=== PATIENT | female | born 1935 | race Caucasian/White ===

== ENCOUNTER 2022-03-07 09:29 | Outpatient (REF) | payer MEDICARE, SELFPAY ==
[2022-03-07 10:33] LABS: MANUAL DIFF FLAG NO
[2022-03-07 10:42] LABS: Basophils Percent Auto 0.3 % (0-2); Eosinophils Percent Auto 0.1 % (0-4); Hematocrit 35.5 % (37.0-47.0); Imm Gran Abs Auto 0.09 X10*3/uL (0.00-0.03); Imm Gran Pct Auto 0.6 % (0.0-0.4); Lymphocytes Absolute Auto 1.1 X10*3/uL (1.2-4.9); Lymphocytes Percent Auto 7.7 % (20-40); Mean Corpuscular Hemoglobin 26.3 pg (27.0-33.0); Mean Corpuscular Volume 84.9 fL (80.0-98.0); Mean Platelet Volume 9.1 fL (9.4-12.3); Monocytes Absolute Auto 0.7 X10*3/uL (0.1-1.2); Monocytes Percent Auto 4.6 % (2-11); Neutrophils Absolute Auto 12.9 x10*3/uL (2.0-8.3); Neutrophils Percent Auto 86.7 % (45-73); Platelet Count 401 X10*3/uL (160-400); Red Blood Count 4.18 X10*6/uL (4.20-5.50); Red Cell Distribution Width 17.5 % (11.0-16.0); White Blood Count 14.8 X10*3/uL (4.8-10.8)
[2022-03-07 10:53] LABS: Alanine Aminotransferase 13 U/L (0-31); Albumin Level 3.6 g/dL (3.5-5.0); Alkaline Phosphatase 72 U/L (39-117); Anion Gap 15 (12-20); Aspartate Amino Transferase 13 U/L (5-31); Bilirubin Total 0.5 mg/dL (0.0-1.0); Blood Urea Nitrogen 19 mg/dL (9-16); C Reactive Protein 2.91 mg/dL (< or = 0.50); Calcium 9.5 mg/dL (8.4-10.2); Carbon Dioxide 27 mmol/L (22-29); Chloride 102 mmol/L (96-108); Estimated Glomerular Filt Rate > 60; Glucose Random 129 mg/dL (60-115); Potassium 4.4 mmol/L (3.3-5.1); Sodium 140 mmol/L (135-145); Total Protein 6.9 g/dL (6.5-8.0)
[2022-03-07 11:11] LABS: HBS Num1 1.35 mIU/mL (0-7.99); HBc Num1 0.09 S/CO (0.00-0.79); HBsAGNum1 0.18 S/CO (0.00-0.99); Hepatitis B Core Antibody Nonreactive (Nonreactive); Hepatitis B Surface Antigen Negative (Negative); ~HepC Num1 0.15 S/CO (0.00-0.79); ~Hepatitis B Surface Antibody NONREACTIVE (Nonreactive); ~Hepatitis C Antibody Nonreactive (Nonreactive)
[2022-03-07 11:26] LABS: Erythrocyte Sedimentation Rate 54 MM/HR (0-20)
[2022-03-08 04:07] LABS: Hepatitis A Antibody IgM 0.36 Index (0-0.79); ~Hepatitis A Antibody IgM Nonreactive (Nonreactive)
[2022-03-10 16:26] LABS: TS Negative Control Passed; TS Panel A 1; TS Panel B 0; TS Positive Control Passed; TSpotTB Negative (Negative)
== END 2022-03-07 09:30 | disposition home or self-care (01) ==
LOC: HO.10HDL 09:29
PROVIDERS: Visit Provider Internal Medicine Rheumatology
DX: M06.9 Rheumatoid arthritis, unspecified (principal); M71.21 Synovial cyst of popliteal space [Baker], right knee; I82.409 Acute embolism and thrombosis of unspecified deep veins of unspecified lower extremity; R79.82 Elevated C-reactive protein (CRP); Z79.899 Other long term (current) drug therapy
CPT/HCPCS: 36415; 80053; 85025; 85652; 86140; 86481; 86704; 86706; 86709; 86803; 87340; 99202

== ENCOUNTER → 2022-04-25 11:04 | Outpatient (BNVA) | payer MEDICARE, SELFPAY | PROVIDERS: PCP Family Medicine; Visit Provider Internal Medicine Rheumatology | DX: M06.9 Rheumatoid arthritis, unspecified (principal); K86.89 Other specified diseases of pancreas; F32.A Depression, unspecified; Z79.52 Long term (current) use of systemic steroids; Z79.899 Other long term (current) drug therapy | CPT/HCPCS: 20610; 99212 ==

== ENCOUNTER 2022-06-12 13:19 | Outpatient (REF) | payer MEDICARE, SELFPAY ==
[2022-06-12 13:35] LABS: MANUAL DIFF FLAG NO
[2022-06-12 14:08] LABS: Basophils Percent Auto 0.2 % (0-2); Hematocrit 40.1 % (37.0-47.0); Hemoglobin 12.5 g/dl (12.0-16.0); Imm Gran Abs Auto 0.05 X10*3/uL (0.00-0.03); Imm Gran Pct Auto 0.5 % (0.0-0.4); Lymphocytes Absolute Auto 1.3 X10*3/uL (1.2-4.9); Lymphocytes Percent Auto 13.4 % (20-40); Mean Corpuscular HGB Conc 31.2 g/dl (31.0-35.0); Mean Corpuscular Hemoglobin 27.3 pg (27.0-33.0); Mean Corpuscular Volume 87.6 fL (80.0-98.0); Monocytes Absolute Auto 0.4 X10*3/uL (0.1-1.2); Monocytes Percent Auto 4.2 % (2-11); Neutrophils Absolute Auto 7.9 x10*3/uL (2.0-8.3); Neutrophils Percent Auto 81.7 % (45-73); Platelet Count 335 X10*3/uL (160-400); Red Blood Count 4.58 X10*6/uL (4.20-5.50); Red Cell Distribution Width 18.1 % (11.0-16.0); White Blood Count 9.7 X10*3/uL (4.8-10.8)
[2022-06-12 14:27] LABS: Alanine Aminotransferase 24 U/L (0-31); Aspartate Amino Transferase 15 U/L (5-31); C Reactive Protein 0.48 mg/dL (< or = 0.50); Estimated Glomerular Filt Rate > 60
[2022-06-12 14:42] LABS: Erythrocyte Sedimentation Rate 16 MM/HR (0-20)
== END 2022-06-12 13:20 | disposition home or self-care (01) ==
LOC: HO.LAB 13:19
PROVIDERS: PCP Family Medicine; Visit Provider Internal Medicine Rheumatology
DX: M06.9 Rheumatoid arthritis, unspecified (principal); Z79.899 Other long term (current) drug therapy
CPT/HCPCS: 36415; 82565; 84450; 84460; 85025; 85652; 86140

== ENCOUNTER 2022-09-16 09:52 | Outpatient (REF) | payer MEDICARE, SELFPAY ==
[2022-09-16 10:09] LABS: MANUAL DIFF FLAG NO
[2022-09-16 11:30] LABS: Basophils Percent Auto 0.3 % (0-2); Eosinophils Percent Auto 0.3 % (0-4); Hematocrit 39.7 % (37.0-47.0); Hemoglobin 12.5 g/dl (12.0-16.0); Imm Gran Abs Auto 0.06 X10*3/uL (0.00-0.03); Imm Gran Pct Auto 0.5 % (0.0-0.4); Lymphocytes Absolute Auto 1.4 X10*3/uL (1.2-4.9); Lymphocytes Percent Auto 11.7 % (20-40); Mean Corpuscular HGB Conc 31.5 g/dl (31.0-35.0); Mean Corpuscular Hemoglobin 29.8 pg (27.0-33.0); Mean Corpuscular Volume 94.5 fL (80.0-98.0); Mean Platelet Volume 9.1 fL (9.4-12.3); Monocytes Absolute Auto 0.7 X10*3/uL (0.1-1.2); Monocytes Percent Auto 5.8 % (2-11); Neutrophils Absolute Auto 9.5 x10*3/uL (2.0-8.3); Neutrophils Percent Auto 81.4 % (45-73); Platelet Count 272 X10*3/uL (160-400); Red Cell Distribution Width 16.4 % (11.0-16.0); White Blood Count 11.7 X10*3/uL (4.8-10.8)
[2022-09-16 11:59] LABS: Alanine Aminotransferase 29 U/L (0-31); Aspartate Amino Transferase 17 U/L (5-31); C Reactive Protein 0.14 mg/dL (< or = 0.50); Estimated Glomerular Filt Rate > 60
[2022-09-16 14:26] LABS: Erythrocyte Sedimentation Rate 10 MM/HR (0-20)
== END 2022-09-16 09:53 | disposition home or self-care (01) ==
LOC: HO.LAB 09:52
PROVIDERS: PCP Family Medicine; Visit Provider Internal Medicine Rheumatology
DX: M06.9 Rheumatoid arthritis, unspecified (principal); Z79.899 Other long term (current) drug therapy
CPT/HCPCS: 36415; 82565; 84450; 84460; 85025; 85652; 86140

== ENCOUNTER → 2022-09-20 09:33 | Outpatient (BNVA) | payer MEDICARE, SELFPAY | PROVIDERS: PCP Family Medicine; Visit Provider Internal Medicine Rheumatology | DX: M06.9 Rheumatoid arthritis, unspecified (principal); M11.80 Other specified crystal arthropathies, unspecified site; M65.9 Synovitis and tenosynovitis, unspecified; S62.102D Fracture of unspecified carpal bone, left wrist, subsequent encounter for fracture with routine healing; Z79.899 Other long term (current) drug therapy; Z79.52 Long term (current) use of systemic steroids | CPT/HCPCS: 99212 ==

== ENCOUNTER 2022-12-28 11:33 | Outpatient (REF) | payer MEDICARE, SELFPAY ==
[2022-12-28 11:58] LABS: MANUAL DIFF FLAG NO
[2022-12-28 12:54] LABS: Basophils Absolute Auto 0.1 X10*3/uL (0.0-0.2); Basophils Percent Auto 0.6 % (0-2); Eosinophils Absolute Auto 0.1 X10*3/uL (0.0-0.4); Eosinophils Percent Auto 0.4 % (0-4); Hematocrit 36.7 % (37.0-47.0); Hemoglobin 11.7 g/dl (12.0-16.0); Imm Gran Abs Auto 0.05 X10*3/uL (0.00-0.03); Imm Gran Pct Auto 0.4 % (0.0-0.4); Lymphocytes Absolute Auto 1.7 X10*3/uL (1.2-4.9); Lymphocytes Percent Auto 13.2 % (20-40); Mean Corpuscular HGB Conc 31.9 g/dl (31.0-35.0); Mean Corpuscular Hemoglobin 29.9 pg (27.0-33.0); Mean Corpuscular Volume 93.9 fL (80.0-98.0); Mean Platelet Volume 9.4 fL (9.4-12.3); Monocytes Absolute Auto 0.9 X10*3/uL (0.1-1.2); Monocytes Percent Auto 7.2 % (2-11); Neutrophils Absolute Auto 9.8 x10*3/uL (2.0-8.3); Neutrophils Percent Auto 78.2 % (45-73); Platelet Count 311 X10*3/uL (160-400); Red Blood Count 3.91 X10*6/uL (4.20-5.50); Red Cell Distribution Width 14.6 % (11.0-16.0); White Blood Count 12.6 X10*3/uL (4.8-10.8)
[2022-12-28 13:26] LABS: Alanine Aminotransferase 16 U/L (0-31); Aspartate Amino Transferase 17 U/L (5-31); C Reactive Protein 0.63 mg/dL (< or = 0.50); Estimated Glomerular Filt Rate > 60
[2022-12-28 13:34] LABS: Erythrocyte Sedimentation Rate 30 MM/HR (0-20)
== END 2022-12-28 11:34 | disposition home or self-care (01) ==
LOC: HO.LAB 11:33
PROVIDERS: PCP Family Medicine; Visit Provider Internal Medicine Rheumatology
DX: M06.9 Rheumatoid arthritis, unspecified (principal); Z79.899 Other long term (current) drug therapy
CPT/HCPCS: 36415; 82565; 84450; 84460; 85025; 85652; 86140

== ENCOUNTER → 2023-01-03 09:31 | Outpatient (BNVA) | payer MEDICARE, SELFPAY | PROVIDERS: PCP Family Medicine; Visit Provider Internal Medicine Rheumatology | DX: M18.0 Bilateral primary osteoarthritis of first carpometacarpal joints (principal); M06.9 Rheumatoid arthritis, unspecified; Z79.52 Long term (current) use of systemic steroids; Z79.899 Other long term (current) drug therapy; Z90.410 Acquired total absence of pancreas; Z90.49 Acquired absence of other specified parts of digestive tract | CPT/HCPCS: 99212 ==

== ENCOUNTER 2023-03-01 11:28 | Outpatient (REF) | payer MEDICARE, SELFPAY ==
[2023-03-01 11:42] LABS: MANUAL DIFF FLAG NO
[2023-03-01 13:02] LABS: Basophils Percent Auto 0.3 % (0-2); Eosinophils Percent Auto 0.3 % (0-4); Hematocrit 37.4 % (37.0-47.0); Imm Gran Abs Auto 0.07 X10*3/uL (0.00-0.03); Imm Gran Pct Auto 0.6 % (0.0-0.4); Lymphocytes Absolute Auto 1.3 X10*3/uL (1.2-4.9); Lymphocytes Percent Auto 10.8 % (20-40); Mean Corpuscular HGB Conc 32.1 g/dl (31.0-35.0); Mean Corpuscular Hemoglobin 30.1 pg (27.0-33.0); Mean Corpuscular Volume 93.7 fL (80.0-98.0); Mean Platelet Volume 9.7 fL (9.4-12.3); Monocytes Absolute Auto 0.8 X10*3/uL (0.1-1.2); Monocytes Percent Auto 6.8 % (2-11); Neutrophils Absolute Auto 9.5 x10*3/uL (2.0-8.3); Neutrophils Percent Auto 81.2 % (45-73); Platelet Count 311 X10*3/uL (160-400); Red Blood Count 3.99 X10*6/uL (4.20-5.50); Red Cell Distribution Width 15.7 % (11.0-16.0); White Blood Count 11.7 X10*3/uL (4.8-10.8)
[2023-03-01 13:31] LABS: Alanine Aminotransferase 43 U/L (0-31); Aspartate Amino Transferase 23 U/L (5-31); C Reactive Protein < 0.10 mg/dL (< or = 0.50); Estimated Glomerular Filt Rate > 60
[2023-03-01 13:43] LABS: Erythrocyte Sedimentation Rate 17 MM/HR (0-20)
== END 2023-03-01 11:29 | disposition home or self-care (01) ==
LOC: HO.LAB 11:28
PROVIDERS: Visit Provider Internal Medicine Rheumatology
DX: M06.9 Rheumatoid arthritis, unspecified (principal); Z79.899 Other long term (current) drug therapy
CPT/HCPCS: 36415; 82565; 84450; 84460; 85025; 85652; 86140

== ENCOUNTER 2023-03-05 14:24 | Outpatient (AMB) | payer MEDICARE, SELFPAY ==
--- NOTE | 2023-03-05 14:35 | A.OFFVIS_ITS ---
Intake Vital Signs 03/05/23 14:36 Height 5 ft 3 in Weight 115 lb 4.828 oz BMI 20.4 BP 130/78 Blood Pressure Location Rt brachial Position Sitting Pulse 57 Pulse Source Pulse Oximeter Temp 97.3 F Temp Source Skin Pulse Oximetry (%) 98 Oxygen Delivery Method Room Air Intake Visit Reasons: RA Intake Note: Here for RA follow up. Requesting MTX be resent to [facility]. Marker Delivery Required: No Accompanied by: Son Allergies amoxicillin Allergy (Intermediate, Verified 03/05/23 14:35) Nausea and Vomiting Medication List - Last Reconciled 03/05/23 by Pablo Matias MD acetaminophen (Tylenol) 650 mg PO BID alendronate 70 mg PO QWEEK amlodipine 5 mg PO DAILY cholecalciferol (vitamin D3) 25 mcg PO DAILY cyanocobalamin (vitamin B-12) (Vitamin B-12) 1,000 mcg PO DAILY folic acid 1 mg PO DAILY [id number] 6,000-19,000 -30,000 unit (Creon) 0 caps PO loteprednol etabonate 0.5% 1 drp ophthalmic (eye) TID methotrexate sodium 20 mg (8 x 2.5 mg) PO QWEEK metoprolol succinate ER 50 mg PO DAILY prednisone 5 mg PO BID valsartan 80 mg PO DAILY HPI HPI Comments History of Present Illness Details The patient presents today with her son for evaluation of her rheumatoid arthritis. At her last visit a couple of months ago I had injected the right wrist. She thinks that has done quite well. We also increased her methotrexate up to 20 mg weekly with 1 mg daily folic acid and the prednisone remains at 5 mg b.i.d.. She was also having some more pain in the left knee and saw Orthopedics. They again injected the left knee. She has plans to talk to a surgeon in a few months about a knee replacement. She remains on alendronate 70 mg weekly for osteoporosis. She feels like she wants to do more walking but feels like she needs someone to accompany her. The son wants me to send her for some physical therapy again in [place] where she had a good experience earlier. She does not seem to have much in the way of trouble eating but has not gained weight. She does have some fatigue after moving her bowels. The left shoulder remains painful. [facility] Medical History (Updated 03/05/23 @ 16:04 by Pablo Matias MD) Left wrist fracture Surgical History H/O Whipple procedure Social History Household Members: Spouse Housing: Apartment Alcohol intake: never Patient Tobacco Use Status: Never used Tobacco e-Cigarette/Vaping Use: Never Used service: No Current occupational status: retired Hearing needs: Yes Vision needs: No Review of Systems Const Details: Some fatigue after a bowel movement. Negative for appetite change, weight change, fever, chills, malaise and fatigue Eyes Details: Negative for vision change, dry eyes,headaches and dizziness ENT Details: Hearing loss is severe. I think this tends to minimize her social interaction. Negative for hearing change, tinnitus, oral ulcer, nose bleeds and oral dryness. Card Details: Negative chest pain, edema and syncope Resp Details: Negative for SOB, cough and wheezing GI Details: Negative indigestion/heartburn, nausea, abdominal pain, bowel changes, diarrhea, constipation and bloody stool. Psych Details: Negative for anxiety, depression and stress Endo Details: Negative for polyuria and polydypsia David/Lymph Details: Negative for excessive bruising or bleeding. Physical Exam Vital Signs: Last Vital Signs Temp 97.3 F 03/05/23 14:36 Pulse 57 03/05/23 14:36 BP 130/78 03/05/23 14:36 Pulse Ox 98 03/05/23 14:36 Oxygen Delivery Method Room Air 03/05/23 14:36 BMI result Body Mass Index 20.4 APPEARANCE: Patient in no acute distress EYES no redness, pupils equal and reactive to light, eyelids normal JOINT EXAM: ? Cervical Spine:.? lateral flexion limited at 10 degrees and rotation at 45 degrees but without pain; no tenderness. Thoracic Spine:.? No scoliosis.? No tenderness on palpation. Lumbar Spine:.? Alignment normal.? Full range of motion without pain, no tenderness. Chest Wall:.? No tenderness, swelling, increased warmth or erythema. Hands:? Right:? Soft tissue swelling and without tenderness at the 1st 3 MCP joints.? The swelling is most prominent at the 3rd MCP.? There is also some slight nontender thickening of the 2nd and 3rd PIP joints.? There is some questionable thenar atrophy.? There is mild bony enlargement with slight tendern ess at the base of the thumb.? No sensory loss.? Left:? Mild swelling with no tenderness at the 1st 2 MCP joints and the 2nd 3rd PIP joints.? The 2nd has a healing laceration, which is slightly tender. She says she cut this preparing some food. Other PIP's are not tender.? There is no sensory loss but she has mild thenar atrophy. Wrists:? Right:? No pain with flexion or extension to 75 degrees. There is no swelling or tenderness, no redness or warmth.? Left:? Mild discomfort with flexion or extension 75 degrees, slight tenderness with no redness or warmth. Elbows:. Normal pain-free range of motion without tenderness, swelling, increased warmth or erythema. Shoulders:,? Right:? Mild pain with abduction 150 degrees or with more than 20 degrees of internal or external rotation. There is mild anterior tenderness and some questionable weakness but no adenopathy.? Left:? Mild pain with the extremes of normal range of motion. Mild anterior tenderness without swelling or adenopathy. Hips:.? Full range of motion without pain. Hip bursa:.? No tenderness. Knees: ? Right:? No pain with extremes of flexion extension.? She has moderate patellofemoral crepitus with slight medial tenderness but no effusion, redness or warmth..? Left: Mild patellofemoral crepitus and mild pain with the extremes of normal flexion or extension.? There is mild medial tenderness but no effusion, redness or warmth. ? Ankles:.? Left:? Mild pain with extremes of motion with some mild medial and lateral tenderness.? Slight medial swelling.? Right:? Normal pain-free range of motion without tenderness, swelling, increased warmth or erythema. Feet:? right: Mild 1st MTP bony enlargement without tenderness.? Left:? There is some mild tenderness in the instep and 1st MTP.? Mild bony enlargement at the 1st MTP. 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 2019 - treated with prednisone 04/2022: methotrexate started Code(s): M06.9 - Rheumatoid arthritis, unspecified Plan Rheumatoid arthritis with what seems to be less symptomatic synovitis present at this visit. This could be because of the recent corticosteroid injection in the left knee but we have also increased her methotrexate. We will see if we can reduce her prednisone slightly to 5 mg in the morning and 2.5 mg in the evening. The methotrexate may be causing some mild LFT elevations so we will make sure we watch that with another test before next visit in 2 months. If we cannot control the synovitis with just the methotrexate we will have to think of other alternative such as adding a TNF inhibitor. She should stay on the alendronate for her osteoporosis, certainly with a continued need for prednisone the alendronate would be helpful to try to prevent fractures. We will send her to physical therapy and she will work on getting protein in her diet to make her a good candidate for surgery. We will see her back in 2 months with lab before that visit. Orders: Orders PT Evaluation and Treatment Today M06.9 - Rheumatoid arthritis, unspecified, M17.0 - Bilateral primary osteoarthritis of knee Alanine Aminotransferase Today M06.9 - Rheumatoid arthritis, unspecified, Z79.899 - Other correction (current) drug therapy Aspartate Amino Transferase Today M06.9 - Rheumatoid arthritis, unspecified, Z79.899 - Other correction (current) drug therapy Creatinine Today M06.9 - Rheumatoid arthritis, unspecified, Z79.899 - Other correction (current) drug therapy C Reactive Protein Today M06.9 - Rheumatoid arthritis, unspecified Complete Blood Count Auto Diff Today M06.9 - Rheumatoid arthritis, unspecified, Z79.899 - Other correction (current) drug therapy Erythrocyte Sedimentation Rate Today M06.9 - Rheumatoid arthritis, unspecified Medications: Changed From methotrexate sodium 4 tab in the AM and 4 tab in the PM on the day she takes the methotrexate (note dose increase) 20 mg (8 x 2.5 mg) PO QWEEK 32 tabs 1RF M06.9 - Rheumatoid arthritis, unspecified To methotrexate sodium 4 tab in the AM and 4 tab in the PM on the day she takes the methotrexate (note dose now 20 mg once a week) 20 mg (8 x 2.5 mg) PO QWEEK 32 tabs 1RF M06.9 - Rheumatoid arthritis, unspecified Coding Level of Care Code Est Pt Level 4 (96214) Diagnoses [facility] use of drug Z79.899 History of Whipple procedure Z90.410; Z90.49 Osteoarthritis of thumbs, bilateral M18.0 Osteoarthritis of knees, bilateral M17.0 Rheumatoid arthritis M06.9
[2023-03-05 14:36] VITALS: BP 130/78; PULSE 57; TEMP 36.3; O2SAT 98; BMI 20.4
== END 2023-03-05 15:22 | disposition home or self-care (01) ==
PROVIDERS: PCP Family Medicine; Visit Provider Internal Medicine Rheumatology
DX: Z79.899 Other long term (current) drug therapy (principal); Z90.410 Acquired total absence of pancreas; Z90.49 Acquired absence of other specified parts of digestive tract; M18.0 Bilateral primary osteoarthritis of first carpometacarpal joints; M17.0 Bilateral primary osteoarthritis of knee; M06.9 Rheumatoid arthritis, unspecified
CPT/HCPCS: 99214

== ENCOUNTER → 2023-03-05 14:24 | Outpatient (BNVA) | payer MEDICARE, SELFPAY | PROVIDERS: PCP Family Medicine; Visit Provider Internal Medicine Rheumatology | DX: M18.0 Bilateral primary osteoarthritis of first carpometacarpal joints (principal); M17.0 Bilateral primary osteoarthritis of knee; M06.9 Rheumatoid arthritis, unspecified; Z79.631 Long term (current) use of antimetabolite agent; Z90.410 Acquired total absence of pancreas | CPT/HCPCS: 99212 ==

== ENCOUNTER 2023-05-03 12:29 | Outpatient (REF) | payer MEDICARE, SELFPAY ==
[2023-05-03 12:44] LABS: MANUAL DIFF FLAG NO
[2023-05-03 14:16] LABS: Basophils Percent Auto 0.3 % (0-2); Eosinophils Percent Auto 0.2 % (0-4); Hematocrit 37.2 % (37.0-47.0); Hemoglobin 12.1 g/dl (12.0-16.0); Imm Gran Abs Auto 0.04 X10*3/uL (0.00-0.03); Imm Gran Pct Auto 0.4 % (0.0-0.4); Lymphocytes Absolute Auto 1.3 X10*3/uL (1.2-4.9); Lymphocytes Percent Auto 13.7 % (20-40); Mean Corpuscular HGB Conc 32.5 g/dl (31.0-35.0); Mean Corpuscular Hemoglobin 30.4 pg (27.0-33.0); Mean Corpuscular Volume 93.5 fL (80.0-98.0); Mean Platelet Volume 9.7 fL (9.4-12.3); Monocytes Absolute Auto 0.7 X10*3/uL (0.1-1.2); Monocytes Percent Auto 7.7 % (2-11); Neutrophils Absolute Auto 7.3 x10*3/uL (2.0-8.3); Neutrophils Percent Auto 77.7 % (45-73); Platelet Count 287 X10*3/uL (160-400); Red Blood Count 3.98 X10*6/uL (4.20-5.50); White Blood Count 9.5 X10*3/uL (4.8-10.8)
[2023-05-03 14:53] LABS: Erythrocyte Sedimentation Rate 16 MM/HR (0-20)
[2023-05-03 15:11] LABS: Alanine Aminotransferase 24 U/L (0-31); Aspartate Amino Transferase 18 U/L (5-31); C Reactive Protein 0.23 mg/dL (< or = 0.50); Estimated Glomerular Filt Rate > 60
== END 2023-05-03 12:30 | disposition home or self-care (01) ==
LOC: HO.LAB 12:29
PROVIDERS: PCP Family Medicine; Visit Provider Internal Medicine Rheumatology
DX: M06.9 Rheumatoid arthritis, unspecified (principal); Z79.899 Other long term (current) drug therapy
CPT/HCPCS: 36415; 82565; 84450; 84460; 85025; 85652; 86140

== ENCOUNTER 2023-05-07 14:18 | Outpatient (AMB) | payer MEDICARE, SELFPAY ==
--- NOTE | 2023-05-07 14:20 | MHC.OFFVIS ---
Intake Vital Signs 05/07/23 14:21 Height 5 ft 3 in Weight 121 lb 0.54 oz BMI 21.4 BP 102/58 L Blood Pressure Location Rt brachial Position Sitting Pulse 64 Pulse Source Pulse Oximeter Temp 97.1 F Temp Source Skin Pulse Oximetry (%) 98 Oxygen Delivery Method Room Air Intake Visit Reasons: RA Intake Note: Patient presents today to follow up on RA. 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 Her son accompanies her. The patient is now on 20 mg weekly methotrexate(she takes 4 tablets of the 2.5 mg methotrexate twice on the day that she takes the methotrexate), prednisone 5 mg in the morning and 2.5 mg in the afternoon, alendronate 70 mg once a week, folic acid 1 mg daily, and 2 or 3 tablets of acetaminophen spread through the day. In general the joints are doing fairly well. She notes the right wrist did much better after the corticosteroid injection a few months ago. She has not required any more injections in the knees from the orthopedist. She recently has moved from [place] to [place] so is closer to her son. She wants to again get starting to do some walking but feels unsteady on her feet. She tried to start physical therapy but apparently that was when she was moving and she lost the prescription. [facility] Medical History (Updated 03/05/23 @ 16:04 by Pablo Matias MD) Left wrist fracture Surgical History H/O Whipple procedure Social History Household Members: Spouse Housing: Apartment Alcohol intake: never Patient Tobacco Use Status: Never used Tobacco e-Cigarette/Vaping Use: Never Used service: No Current occupational status: retired Hearing needs: Yes Vision needs: No Review of Systems Const Details: Negative for appetite change, weight change, fever, chills, malaise and fatigue Eyes Details: Negative for vision change, dry eyes,headaches and dizziness ENT Details: Negative for hearing change, tinnitus, oral ulcer, nose bleeds and oral dryness. Card Details: Negative chest pain, edema and syncope Resp Details: Negative for SOB, cough and wheezing GI Details: Occasional loose stool attributed to her previous pancreatic surgery. Negative indigestion/heartburn, nausea, abdominal pain, bowel changes, constipation and bloody stool. Endo Details: Negative for polyuria and polydypsia David/Lymph Details: Negative for excessive bruising or bleeding. Physical Exam Vital Signs: Last Vital Signs Temp 97.1 F 05/07/23 14:21 Pulse 64 05/07/23 14:21 BP 102/58 L 05/07/23 14:21 Pulse Ox 98 05/07/23 14:21 Oxygen Delivery Method Room Air 05/07/23 14:21 BMI result Body Mass Index 21.4 APPEARANCE: Patient in no acute distress EYES no redness, pupils equal and reactive to light, eyelids normal JOINT EXAM: ? Cervical Spine:.? lateral flexion limited at 10 degrees and rotation at 45 degrees but without pain; no tenderness. Thoracic Spine:.? No scoliosis.? No tenderness on palpation. Lumbar Spine:.? Alignment normal.? Full range of motion without pain, no tenderness. Chest Wall:.? No tenderness, swelling, increased warmth or erythema. Hands:? Right:? Soft tissue swelling and without tenderness at the 1st 3 MCP joints.? The swelling is most prominent at the 3rd MCP.? There is also some slight nontender thickening of the 2nd and 3rd PIP joints.? There is some questionable thenar atrophy.? There is mild bony enlargement with mild tenderness at the base of the thumb.? No sensory loss.? Left:? Mild swelling with no tenderness at the 1st 2 MCP joints and the 2nd 3rd PIP joints.? Other PIP's are not tender.? There is no sensory loss but she has mild thenar atrophy. Wrists:? Right:? No pain with flexion or extension to 75 degrees. There is no swelling or tenderness, no redness or warmth.? Left:? Mild discomfort with flexion or extension 75 degrees, slight tenderness with no redness or warmth. Elbows:. Normal pain-free range of motion without tenderness, swelling, increased warmth or erythema. Shoulders:,? Right:? Mild pain with abduction 150 degrees or with more than 20 degrees of internal or external rotation. There is mild anterior tenderness and some questionable weakness but no adenopathy.? Left:? Mild pain abduction at 120 degrees. Active motion and passive motion limited at about 150 degrees of abduction. Mild anterior tenderness without swelling or adenopathy. Hips:.? Full range of motion without pain. Hip bursa:.? No tenderness. Knees: ? Right:? No pain with extremes of flexion extension.? She has moderate patellofemoral crepitus with slight medial tenderness but no effusion, redness or warmth..? Left: Mild patellofemoral crepitus and mild pain with the extremes of normal flexion or extension.? There is mild medial tenderness but no effusion, redness or warmth. ? Ankles:.? Left:? Mild pain with extremes of motion with some mild medial and lateral tenderness.? Slight medial swelling.? Right:? Normal pain-free range of motion without tenderness, swelling, increased warmth or erythema. Feet:? right: Mild 1st MTP bony enlargement without tenderness.? Left:? There is some mild tenderness in the instep and 1st MTP.? Mild bony enlargement at the 1st MTP. 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 2019 - treated with prednisone 04/2022: methotrexate started Code(s): M06.9 - Rheumatoid arthritis, unspecified Plan Rheumatoid arthritis with improvement in the synovitis now that she has been on the methotrexate for a number of months. She does not seem to have any side effects with that as the blood work looked good so we will continue with the 20 mg weekly. We will cautiously try a further reduction in the prednisone to 2.5 mg twice a day. She will get lab work before the next visit in about 3 months. She should continue with the acetaminophen and alendronate as before. I gave her a new printed prescription for physical therapy with the aim of improving her gait, lower extremity strength, and shoulder range of motion. Orders: Orders PT Evaluation and Treatment Today M06.9 - Rheumatoid arthritis, unspecified, M17.0 - Bilateral primary osteoarthritis of knee Erythrocyte Sedimentation Rate Today M06.9 - Rheumatoid arthritis, unspecified C Reactive Protein Today M06.9 - Rheumatoid arthritis, unspecified Complete Blood Count Auto Diff Today M06.9 - Rheumatoid arthritis, unspecified, Z79.899 - Other logistic manager (current) drug therapy Comprehensive Met. Panel Today Z79.899 - Other [place] (current[facility] drug therapy Medications: Changed From prednisone one tab in AM and 1/2 tab in PM 45 tabs 2RF M06.9 - Rheumatoid arthritis, unspecified To prednisone 2.5 mg (1/2 x 5 mg) PO BID 30 tabs 2RF M06.9 - Rheumatoid arthritis, unspecified Coding Level of Care Code Est Pt Level 3 (39255) Diagnoses Osteoarthritis of knees, bilateral M17.0 bridge inspector use of drug Z79.899 Rheumatoid arthritis M06.9
[2023-05-07 14:21] VITALS: BP 102/58; PULSE 64; TEMP 36.2; O2SAT 98; BMI 21.4
== END 2023-05-07 15:15 | disposition home or self-care (01) ==
PROVIDERS: PCP Family Medicine; Visit Provider Internal Medicine Rheumatology
DX: M17.0 Bilateral primary osteoarthritis of knee (principal); Z79.899 Other long term (current) drug therapy; M06.9 Rheumatoid arthritis, unspecified
CPT/HCPCS: 99213

== ENCOUNTER → 2023-05-07 14:18 | Outpatient (BNVA) | payer MEDICARE, SELFPAY | PROVIDERS: PCP Family Medicine; Visit Provider Internal Medicine Rheumatology | DX: M17.0 Bilateral primary osteoarthritis of knee (principal); M06.9 Rheumatoid arthritis, unspecified; Z79.899 Other long term (current) drug therapy | CPT/HCPCS: 99212 ==

== ENCOUNTER 2023-07-30 09:30 | Outpatient (REF) | payer MEDICARE, SELFPAY ==
[2023-07-30 09:53] LABS: MANUAL DIFF FLAG NO
[2023-07-30 10:28] LABS: Basophils Absolute Auto 0.1 X10*3/uL (0.0-0.2); Eosinophils Absolute Auto 0.2 X10*3/uL (0.0-0.4); Eosinophils Percent Auto 2.3 % (0-4); Hemoglobin 12.2 g/dl (12.0-16.0); Imm Gran Abs Auto 0.03 X10*3/uL (0.00-0.03); Imm Gran Pct Auto 0.3 % (0.0-0.4); Lymphocytes Absolute Auto 3.5 X10*3/uL (1.2-4.9); Lymphocytes Percent Auto 37.7 % (20-40); Mean Corpuscular HGB Conc 31.3 g/dl (31.0-35.0); Mean Corpuscular Hemoglobin 30.7 pg (27.0-33.0); Mean Platelet Volume 9.2 fL (9.4-12.3); Monocytes Percent Auto 10.8 % (2-11); Neutrophils Absolute Auto 4.4 x10*3/uL (2.0-8.3); Neutrophils Percent Auto 47.9 % (45-73); Platelet Count 389 X10*3/uL (160-400); Red Blood Count 3.98 X10*6/uL (4.20-5.50); Red Cell Distribution Width 15.4 % (11.0-16.0); White Blood Count 9.2 X10*3/uL (4.8-10.8)
[2023-07-30 11:08] LABS: Erythrocyte Sedimentation Rate 23 MM/HR (0-20)
[2023-07-30 11:25] LABS: Alanine Aminotransferase 23 U/L (0-31); Albumin Level 3.8 g/dL (3.5-5.0); Alkaline Phosphatase 58 U/L (39-117); Anion Gap 12 (12-20); Aspartate Amino Transferase 19 U/L (5-31); Bilirubin Total 0.5 mg/dL (0.0-1.0); Blood Urea Nitrogen 14 mg/dL (9-16); C Reactive Protein < 0.10 mg/dL (< or = 0.50); Calcium 9.2 mg/dL (8.4-10.2); Carbon Dioxide 28 mmol/L (22-29); Chloride 105 mmol/L (96-108); Estimated Glomerular Filt Rate > 60; Glucose Random 93 mg/dL (60-115); Potassium 3.5 mmol/L (3.3-5.1); Sodium 141 mmol/L (135-145); Total Protein 7.3 g/dL (6.5-8.0)
== END 2023-07-30 09:31 | disposition home or self-care (01) ==
LOC: HO.LAB 09:30
PROVIDERS: PCP Family Medicine; Visit Provider Internal Medicine Rheumatology
DX: M06.9 Rheumatoid arthritis, unspecified (principal); Z79.899 Other long term (current) drug therapy
CPT/HCPCS: 36415; 80053; 85025; 85652; 86140

== ENCOUNTER 2023-08-02 13:54 | Outpatient (AMB) | payer MEDICARE, SELFPAY ==
--- NOTE | 2023-08-02 14:13 | MHC.OFFVIS ---
Intake Vital Signs 08/02/23 14:15 Height 5 ft 3 in Weight 116 lb 6.465 oz BMI 20.6 BP 136/60 Blood Pressure Location Rt brachial Position Sitting Pulse 58 Pulse Source Pulse Oximeter Temp 96.8 F Temp Source Skin Pulse Oximetry (%) 97 Oxygen Delivery Method Room Air Intake Visit Reasons: RA Intake Note: Pt last seen by Dr Matias on 05/07/23 presents today for follow up and test results. Research Study Assistant Required: No Accompanied by: Son Allergies amoxicillin Allergy (Intermediate, Verified 08/02/23 14:18) Nausea and Vomiting Medication List - Last Reconciled 08/02/23 by Nisha Pitts MD acetaminophen (Tylenol) 650 mg PO BID alendronate 70 mg PO QWEEK amlodipine 5 mg PO DAILY cholecalciferol (vitamin D3) 25 mcg PO DAILY cyanocobalamin (vitamin B-12) (Vitamin B-12) 1,000 mcg PO DAILY folic acid 1 mg PO DAILY [id number]-xrgcyjc 6,000-19,000 -30,000 unit (Creon) 0 caps PO methotrexate sodium 20 mg (8 x 2.5 mg) PO QWEEK metoprolol succinate ER 50 mg PO DAILY prednisone 2.5 mg (1/2 x 5 mg) PO BID valsartan 80 mg PO DAILY HPI HPI Comments History of Present Illness Details 87-year-old female with rheumatoid arthritis returns for follow-up. She is on prednisone 2.5 mg Twice daily, methotrexate 20 mg weekly split dose and alendronate 70 mg weekly. States that she is doing well overall. She feels that she does not have much strength in her hands. She does not have any significant pain in her hands or fingers. She has significantly limited range of motion of her shoulder but this has significantly improved since after an injection done by Orthopedics 2-3 months ago. Most recent history by Dr. Matias 04/2023: The patient returns for evaluation of her rheumatoid arthritis and osteoarthritis. Her son accompanies her. The patient is now on 20 mg weekly methotrexate(she takes 4 tablets of the 2.5 mg methotrexate twice on the day that she takes the methotrexate), prednisone 5 mg in the morning and 2.5 mg in the afternoon, alendronate 70 mg once a week, folic acid 1 mg daily, and 2 or 3 tablets of acetaminophen spread through the day. In general the joints are doing fairly well. She notes the right wrist did much better after the corticosteroid injection a few months ago. She has not required any more injections in the knees from the orthopedist. She recently has moved from [place] to [place] so is closer to her son. She wants to again get starting to do some walking but feels unsteady on her feet. She tried to start physical therapy but apparently that was when she was moving and she lost the prescription. [facility] Medical History Left wrist fracture Surgical History H/O Whipple procedure Social History Household Members: Spouse Housing: Apartment Alcohol intake: never Patient Tobacco Use Status: Never used Tobacco e-Cigarette/Vaping Use: Never Used service: No Current occupational status: retired Hearing needs: Yes Vision needs: No Review of Systems Musc Denies arthralgias, Denies joint swelling, Reports limited range of motion and Reports muscle weakness Physical Exam Vital Signs: Last Vital Signs Temp 96.8 F 08/02/23 14:15 Pulse 58 08/02/23 14:15 BP 136/60 08/02/23 14:15 Pulse Ox 97 08/02/23 14:15 Oxygen Delivery Method Room Air 08/02/23 14:15 BMI result Body Mass Index 20.6 Const General: cooperative, healthy appearing and comfortable Nutritional Appearance: thin Orientation/consciousness: patient oriented x3 Limitations: no limitations HEENT Other: A little hard of hearing. Wearing hearing aids Head: Yes normocephalic and Yes atraumatic Mouth: moist mucous membranes Resp Effort & Inspection: normal respiratory effort and able to speak in complete sentences Skin General skin exam: no rashes or lesions noted Neuro General: patient oriented x3 Extrem Other: Osteoarthritic changes of both hands Right 3rd finger PIP swelling and minimal tenderness No flexor or extensor tendon tenderness Negative MCP squeeze test Normal range of motion of hands wrists elbows without pain Limited left shoulder abduction at about 85 degrees. No knee swelling or tenderness bilaterally No pain with full flexion and extension No ankle swelling or tenderness No MTP tenderness Assessment & Plan Assessment & Plan (1) Rheumatoid arthritis: Comment: Onset ? 2019 - treated with prednisone. Unknown serologies 04/2022: methotrexate started effective Code(s): M06.9 - Rheumatoid arthritis, unspecified Qualifiers: Rheumatoid arthritis location: multiple sites Rheumatoid factor presence: unspecified presence Qualified Code(s): M06.9 - Rheumatoid arthritis, unspecified Plan: This is an 87-year-old female with rheumatoid arthritis. Unknown serology who presents for follow-up. Doing quite well on methotrexate 20 mg weekly split dose and prednisone 2.5 mg Twice daily. Essentially she has 1 swollen joint. The left shoulder limited range of motion can be related to osteoarthritis or or rotator cuff tendinopathy. We will request records from Orthopedics Continue with methotrexate 20 mg weekly split dose, folic acid 1 mg daily. Reduce prednisone to 2.5 mg daily Advised patient to use a squeeze ball to strengthen her hands. 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 Will check a bone density scan. 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 Did not need any chemoradiation Code(s): Z90.410 - Acquired total absence of pancreas; Z90.49 - Acquired absence of other specified parts of digestive tract Plan: Discussed with patient that she should establish care with an oncologist in order to monitor her. She has not too excited about it. Discuss with PCP (5) DVT of leg (deep venous thrombosis): Comment: 02/2022 left popliteal vein Code(s): I82.409 - Acute embolism and thrombosis of unspecified deep veins of unspecified lower extremity Qualifiers: Affected thrombotic vein of extremity: popliteal Laterality: left Plan: On Eliquis Plan I spent 46 minutes reviewing patient's chart, evaluating patient, ordering diagnostic workup, counseling patient and documenting in the chart Orders: Orders XR DEXA axial skeleton Today M81.0 - Age-related osteoporosis without current pathological fracture PT Evaluation and Treatment Today M06.9 - Rheumatoid arthritis, unspecified, M17.0 - Bilateral primary osteoarthritis of knee Complete Blood Count Auto Diff 10 Weeks M06.9 - Rheumatoid arthritis, unspecified C Reactive Protein 10 Weeks M06.9 - Rheumatoid arthritis, unspecified Cyclic Citrullinated Peptide 10 Weeks M06.9 - Rheumatoid arthritis, unspecified AMIRA Reflex Titer and Pattern 10 Weeks M06.9 - Rheumatoid arthritis, unspecified Comprehensive Met. Panel 10 Weeks M06.9 - Rheumatoid arthritis, unspecified Erythrocyte Sedimentation Rate 10 Weeks M06.9 - Rheumatoid arthritis, unspecified Rheumatoid Factor 10 Weeks M06.9 - Rheumatoid arthritis, unspecified Coding Level of Care Code Est Pt Level 5 (24465) Diagnoses Rheumatoid arthritis involving multiple sites, unspecified whether rheumatoid factor present M06.9 Rheumatoid arthritis location: multiple sites Rheumatoid factor presence: unspecified presence On prednisone therapy Z79.52 FPC use of drug Z79.899 History of Whipple procedure Z90.410; Z90.49 DVT of leg (deep venous thrombosis) I82.409 Affected thrombotic vein of extremity: popliteal Laterality: left
[2023-08-02 14:15] VITALS: BP 136/60; PULSE 58; TEMP 36; O2SAT 97; BMI 20.6
== END 2023-08-02 15:12 | disposition home or self-care (01) ==
PROVIDERS: PCP Family Medicine; Visit Provider Student in an Organized Health Care Education/Training Program
DX: M06.09 Rheumatoid arthritis without rheumatoid factor, multiple sites (principal); Z79.52 Long term (current) use of systemic steroids; Z79.899 Other long term (current) drug therapy; Z90.410 Acquired total absence of pancreas; Z90.49 Acquired absence of other specified parts of digestive tract; I82.409 Acute embolism and thrombosis of unspecified deep veins of unspecified lower extremity
CPT/HCPCS: 99215

== ENCOUNTER → 2023-08-02 13:54 | Outpatient (BNVA) | payer MEDICARE, SELFPAY | PROVIDERS: PCP Family Medicine; Visit Provider Student in an Organized Health Care Education/Training Program | DX: M06.9 Rheumatoid arthritis, unspecified (principal); I82.409 Acute embolism and thrombosis of unspecified deep veins of unspecified lower extremity; Z79.52 Long term (current) use of systemic steroids; Z79.899 Other long term (current) drug therapy; Z90.410 Acquired total absence of pancreas; Z90.49 Acquired absence of other specified parts of digestive tract | CPT/HCPCS: 99212 ==

== ENCOUNTER 2023-08-28 14:19 | Outpatient (REF) | payer MEDICARE, SELFPAY ==
--- NOTE | ~2023-08-28 | MM_ITS ---
EXAMINATION: BONE DENSITOMETRY CLINICAL INDICATION: Age-related osteoporosis without current pathological fracture. COMPARISON: This is the patient's baseline examination. TECHNIQUE: Using a Zebtab DXA System (software version: 13.1) manufactured by [employer], dual-energy x-ray absorptiometry was performed of the lumbar spine and left hip. The images are of good technical quality. Summary results are attached. FINDINGS: LEFT FEMUR, NECK: BMD 0.649 g/cm2, Z-score -0.2, T-score -2.8, osteoporosis. LEFT FEMUR, TOTAL: BMD 0.654 g/cm2, Z-score -0.2, T-score -2.8, osteoporosis. AP SPINE L2-L4 (excluding L1): The data of L1-L4 has been changed to exclude the L1 vertebral body, because kyphoplasty at this level may cause overestimation of lumbar spine density. BMD 0.967 g/cm2, Z-score 0.3, T-score -1.9, osteopenia. IDENTIFIED RISK FACTORS: Early menopause, secondary osteoporosis, hysterectomy, bilateral oophorectomy, glucocorticoids, history of fracture (adult), osteoporosis, height loss, partial gastrectomy. HISTORY OF FRACTURE: Wrist. MEDICATIONS: Vitamin D, ERT/SERMS, bisphosphonates. MM/XR DEXA axial skeleton IMPRESSION: 1. DIAGNOSIS: Severe osteoporosis based on the lowest T-score value of -2.8 in the femoral neck and total femur, and history of fracture applying World Health Organization criteria. 2. 10-YEAR FRACTURE RISK PREDICTION, FRAX: According to the guidelines, FRAX calculation should only be performed on patients in the osteopenia bone density category. Therefore, FRAX was not performed on this patient. 3. Treatment Recommendations: NOF guidelines recommend consideration for treatment in postmenopausal women and men age 50 and older presenting with the following: -A hip or vertebral (clinical or morphometric) fracture. -T-score less than or equal to -2.5 at the femoral neck or spine after appropriate evaluation to exclude secondary causes. -Low bone mass at the hip or spine and a 10-year fracture probability by FRAX of greater than or equal to 3% for hip fracture or greater than or equal to 20% for major osteoporotic fracture based on the [place] adapted WHO algorithm. 4. Other Recommendations: All treatment decisions require clinical judgment and consideration of individual patient factors, including patient preferences, comorbidities, previous drug use, risk factors not captured in the FRAX model (e.g. frailty, falls, vitamin D deficiency, increased bone turnover, interval significant decline in bone density) and possible under or overestimation of fracture risk by FRAX. Additional medical evaluation for secondary cause of low bone mineral density may be appropriate. FUTURE SCAN RECOMMENDATION: People with diagnosed cases of osteoporosis or at high risk for fracture should have regular bone mineral density tests. For patients eligible for Medicare, routine testing is allowed once every 2 years. The testing frequency can be increased to one year for patients who have rapidly progressing disease, those who are receiving or discontinuing medical therapy to restore bone mass, or have additional risk factors.
== END 2023-08-28 14:20 | disposition home or self-care (01) ==
LOC: HO.MAMMO 14:19
PROVIDERS: PCP Family Medicine; Visit Provider Student in an Organized Health Care Education/Training Program
DX: Z13.820 Encounter for screening for osteoporosis (principal); M81.0 Age-related osteoporosis without current pathological fracture; Z78.0 Asymptomatic menopausal state
CPT/HCPCS: 77080

== ENCOUNTER 2023-10-29 10:05 | Outpatient (REF) | payer MEDICARE, SELFPAY ==
[2023-10-29 10:29] LABS: MANUAL DIFF FLAG NO
[2023-10-29 10:36] LABS: Basophils Absolute Auto 0.1 X10*3/uL (0.0-0.2); Basophils Percent Auto 0.6 % (0-2); Eosinophils Absolute Auto 0.1 X10*3/uL (0.0-0.4); Eosinophils Percent Auto 0.9 % (0-4); Hematocrit 39.6 % (37.0-47.0); Hemoglobin 12.7 g/dl (12.0-16.0); Imm Gran Abs Auto 0.03 X10*3/uL (0.00-0.03); Imm Gran Pct Auto 0.4 % (0.0-0.4); Lymphocytes Absolute Auto 1.9 X10*3/uL (1.2-4.9); Lymphocytes Percent Auto 23.8 % (20-40); Mean Corpuscular HGB Conc 32.1 g/dl (31.0-35.0); Mean Corpuscular Hemoglobin 30.1 pg (27.0-33.0); Mean Corpuscular Volume 93.8 fL (80.0-98.0); Mean Platelet Volume 8.7 fL (9.4-12.3); Monocytes Absolute Auto 0.5 X10*3/uL (0.1-1.2); Monocytes Percent Auto 6.9 % (2-11); NRBC Pct Auto 0.5 /100WBC (0.0-0.2); Neutrophils Absolute Auto 5.3 x10*3/uL (2.0-8.3); Neutrophils Percent Auto 67.4 % (45-73); Platelet Count 271 X10*3/uL (160-400); Red Blood Count 4.22 X10*6/uL (4.20-5.50); Red Cell Distribution Width 14.8 % (11.0-16.0); White Blood Count 7.9 X10*3/uL (4.8-10.8)
[2023-10-29 11:08] LABS: Alanine Aminotransferase 33 U/L (0-31); Albumin Level 3.9 g/dL (3.5-5.0); Alkaline Phosphatase 63 U/L (39-117); Anion Gap 11 (12-20); Aspartate Amino Transferase 23 U/L (5-31); Bilirubin Total 0.7 mg/dL (0.0-1.0); Blood Urea Nitrogen 16 mg/dL (9-16); C Reactive Protein 0.14 mg/dL (< or = 0.50); Calcium 9.4 mg/dL (8.4-10.2); Carbon Dioxide 28 mmol/L (22-29); Chloride 106 mmol/L (96-108); Estimated Glomerular Filt Rate > 60; Glucose Random 91 mg/dL (60-115); Rheumatoid Factor 31.4 IU/mL (<15.0); Sodium 141 mmol/L (135-145); Total Protein 7.2 g/dL (6.5-8.0)
[2023-10-29 11:14] LABS: Erythrocyte Sedimentation Rate 19 MM/HR (0-20)
[2023-10-30 14:18] LABS: Cyclic Citrullinated Peptide >250 UNITS
[2023-10-31 21:08] LABS: Anti Nuclear Antibody Pattern Nuclear, Nucleolar; Anti Nuclear Antibody Screen POSITIVE (NEGATIVE); Anti Nuclear Antibody Titer 1:40 titer
== END 2023-10-29 10:06 | disposition home or self-care (01) ==
LOC: HO.LAB 10:05
PROVIDERS: PCP Family Medicine; Visit Provider Student in an Organized Health Care Education/Training Program
DX: M06.9 Rheumatoid arthritis, unspecified (principal)
CPT/HCPCS: 36415; 80053; 85025; 85652; 86038; 86039; 86140; 86200; 86431

== ENCOUNTER 2023-10-30 14:19 | Outpatient (AMB) | payer MEDICARE, SELFPAY ==
[2023-10-30 14:27] VITALS: BP 144/70; PULSE 63; O2SAT 96; BMI 20.9
--- NOTE | 2023-10-30 14:27 | MHC.OFFVIS ---
Vital Signs 10/30/23 14:27 Height 5 ft 3 in Weight 117 lb 11.629 oz BMI 20.9 BP 144/70 H Blood Pressure Location Rt brachial Position Sitting Pulse 63 Pulse Source Pulse Oximeter Pulse Oximetry (%) 96 Oxygen Delivery Method Room Air Intake Visit Reasons: RA Intake Note: Patient last seen 08/02/23 presents today for follow up and test results. Left shoulder very bad, today I'm not good. Doing PT for shoulder. States she needs refills. 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 Accompanied by: Self / Same As Patient Allergies amoxicillin Allergy (Intermediate, Verified 10/30/23 14:32) Nausea and Vomiting Medication List - Last Reconciled 10/30/23 by Nisha Pitts MD acetaminophen (Tylenol) 650 mg PO BID alendronate 70 mg PO QWEEK amlodipine 5 mg PO DAILY cholecalciferol (vitamin D3) 25 mcg PO DAILY cyanocobalamin (vitamin B-12) (Vitamin B-12) 1,000 mcg PO DAILY folic acid 1 mg PO DAILY dfitxo-focemach-rblpwws 6,000-19,000 -30,000 unit (Creon) 0 caps PO methotrexate sodium 20 mg (8 x 2.5 mg) PO QWEEK metoprolol succinate ER 50 mg PO DAILY prednisone 2.5 mg (1/2 x 5 mg) PO BID valsartan 80 mg PO DAILY HPI Comments Details: 88-year-old female with rheumatoid arthritis returns for follow-up. She is on prednisone 2.5 mg Twice daily, methotrexate 20 mg weekly split dose and alendronate 70 mg weekly. She states that she has been doing about the same overall except that her left shoulder is worse. She started going to physical therapy. She is done 2 sessions so far. She continues to have difficulty with range of motion of her left shoulder. She is doing well otherwise Most recent history by Dr. Matias 04/2023: The patient returns for evaluation of her rheumatoid arthritis and osteoarthritis. Her son accompanies her. The patient is now on 20 mg weekly methotrexate(she takes 4 tablets of the 2.5 mg methotrexate twice on the day that she takes the methotrexate), prednisone 5 mg in the morning and 2.5 mg in the afternoon, alendronate 70 mg once a week, folic acid 1 mg daily, and 2 or 3 tablets of acetaminophen spread through the day. In general the joints are doing fairly well. She notes the right wrist did much better after the corticosteroid injection a few months ago. She has not required any more injections in the knees from the orthopedist. She recently has moved from [place] to [place] so is closer to her son. She wants to again get starting to do some walking but feels unsteady on her feet. She tried to start physical therapy but apparently that was when she was moving and she lost the prescription. [facility] Medical History Left wrist fracture Surgical History H/O Whipple procedure Social History Household Members: Spouse Housing: Apartment Alcohol intake: never Patient Tobacco Use Status: Never used Tobacco e-Cigarette/Vaping Use: Never Used service: No Current occupational status: retired Hearing needs: Yes Vision needs: No Review of Systems Musc Denies arthralgias, Denies joint swelling, Reports limited range of motion and Reports muscle weakness Physical Exam Vital Signs: Last Vital Signs Pulse 63 10/30/23 14:27 BP 144/70 H 10/30/23 14:27 Pulse Ox 96 10/30/23 14:27 Oxygen Delivery Method Room Air 10/30/23 14:27 BMI result Body Mass Index 20.9 Const General: cooperative, healthy appearing and comfortable Nutritional Appearance: thin Orientation/consciousness: patient oriented x3 Limitations: no limitations HEENT Other: A little hard of hearing. Wearing hearing aids Head: Yes normocephalic and Yes atraumatic Mouth: moist mucous membranes Resp Effort & Inspection: normal respiratory effort and able to speak in complete sentences Skin General skin exam: no rashes or lesions noted Neuro General: patient oriented x3 Extrem Other: Osteoarthritic changes of both hands Prominent right 3rd Atif's nodes. Not swollen today No flexor or extensor tendon tenderness Negative MCP squeeze test Normal range of motion of hands wrists elbows without pain Limited left shoulder abduction at about 85 degrees. No knee swelling or tenderness bilaterally No pain with full flexion and extension No ankle swelling or tenderness No MTP tenderness Assessment & Plan Assessment & Plan (1) Rheumatoid arthritis: Comment: Onset ? 2019 - treated with prednisone. +RF+++CCP 04/2022: methotrexate started effective Code(s): M06.9 - Rheumatoid arthritis, unspecified Category: Medical Qualifiers: Rheumatoid arthritis location: multiple sites Rheumatoid factor presence: unspecified presence Qualified Code(s): M06.9 - Rheumatoid arthritis, unspecified Plan: This is an 88-year-old female with rheumatoid arthritis. Unknown serology who presents for follow-up. Doing quite well on methotrexate 20 mg weekly split dose and prednisone 2.5 mg daily. The left shoulder limited range of motion can be related to osteoarthritis or or rotator cuff tendinopathy. Continue with current meds. 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 Did not need any chemoradiation Code(s): Z90.410 - Acquired total absence of pancreas; Z90.49 - Acquired absence of other specified parts of digestive tract Category: Surgical Plan: Discussed with patient that she should establish care with an oncologist in order to monitor her. She has not too excited about it. Discuss with PCP (4) DVT of leg (deep venous thrombosis): Comment: 02/2022 left popliteal vein Code(s): I82.409 - Acute embolism and thrombosis of unspecified deep veins of unspecified lower extremity Category: Medical Qualifiers: Affected thrombotic vein of extremity: popliteal Laterality: left Plan: On Eliquis (5) Osteoporosis: Comment: DEXA 08/2023 Left femur neck T-score-2.8 Left femur total -2.8 L-spine T-score -1.9 Code(s): M81.0 - Age-related osteoporosis without current pathological fracture Category: Medical Qualifiers: Osteoporosis type: age-related Presence of current pathological fracture: without current pathological fracture Qualified Code(s): M81.0 - Age-related osteoporosis without current pathological fracture Plan I spent 46 minutes reviewing patient's chart, evaluating patient, ordering diagnostic workup, counseling patient and documenting in the chart Orders: Orders Erythrocyte Sedimentation Rate 3 Months M06.9 - Rheumatoid arthritis, unspecified, Z79.899 - Other skilled nursing (current) drug therapy Complete Blood Count Auto Diff 3 Months M06.9 - Rheumatoid arthritis, unspecified, Z79.899 - 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 Panel 3 Months M06.9 - Rheumatoid arthritis, unspecified, Z79.899 - Other termite control servicer (current) drug therapy C Reactive Protein 3 Months M06.9 - Rheumatoid arthritis, unspecified, Z79.899 - Other skilled nursing (current) drug therapy Medications: Changed From methotrexate sodium 4 tab in the AM and 4 tab in the PM on the day she takes the methotrexate (note dose now 20 mg once a week) 20 mg (8 x 2.5 mg) PO QWEEK 96 tabs 1RF M06.9 - Rheumatoid arthritis, unspecified To methotrexate sodium 4 tab in the AM and 4 tab in the PM on the day she takes the methotrexate 20 mg (8 x 2.5 mg) PO QWEEK 96 tabs 0RF M06.9 - Rheumatoid arthritis, unspecified Refilled alendronate 70 mg PO QWEEK 12 tabs 3RF 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 Coding Level of Care Code Est Pt Level 5 (97129) Complex EM visit Add On G2211 Diagnoses Rheumatoid arthritis involving multiple sites, unspecified whether rheumatoid factor present M06.9 Rheumatoid arthritis location: multiple sites Rheumatoid factor presence: unspecified presence custodial use of drug Z79.899 History of Whipple procedure Z90.410; Z90.49 DVT of leg (deep venous thrombosis) I82.409 Affected thrombotic vein of extremity: popliteal Laterality: left Age-related osteoporosis without current pathological fracture M81.0 Osteoporosis type: age-related Presence of current pathological fracture: without current pathological fracture
== END 2023-10-30 14:55 | disposition home or self-care (01) ==
LOC: HO.RHE 14:19
PROVIDERS: PCP Family Medicine; Visit Provider Student in an Organized Health Care Education/Training Program
DX: M06.9 Rheumatoid arthritis, unspecified (principal); Z79.899 Other long term (current) drug therapy; Z90.410 Acquired total absence of pancreas; Z90.49 Acquired absence of other specified parts of digestive tract; I82.409 Acute embolism and thrombosis of unspecified deep veins of unspecified lower extremity; M81.0 Age-related osteoporosis without current pathological fracture
CPT/HCPCS: 99215; G2211

== ENCOUNTER → 2023-10-30 14:19 | Outpatient (BNVA) | payer MEDICARE, SELFPAY | PROVIDERS: PCP Family Medicine; Visit Provider Student in an Organized Health Care Education/Training Program | DX: M06.9 Rheumatoid arthritis, unspecified (principal); M81.0 Age-related osteoporosis without current pathological fracture; I82.409 Acute embolism and thrombosis of unspecified deep veins of unspecified lower extremity; Z79.52 Long term (current) use of systemic steroids; Z79.899 Other long term (current) drug therapy; Z90.49 Acquired absence of other specified parts of digestive tract; Z90.410 Acquired total absence of pancreas | CPT/HCPCS: 99212 ==

== ENCOUNTER 2024-05-02 14:17 | Outpatient (AMB) | payer MEDICARE, SELFPAY ==
--- NOTE | 2024-05-02 14:18 | MHC.OFFVIS ---
Vital Signs 05/02/24 14:24 Height 5 ft 3 in Weight 103 lb 2.821 oz BMI 18.3 BP 112/62 Blood Pressure Location Rt brachial Position Sitting Pulse 83 Pulse Source Pulse Oximeter Pulse Oximetry (%) 98 Oxygen Delivery Method Room Air Intake Visit Reasons: RA/CM Intake Note: Patient presents for RA. Allergies amoxicillin Allergy (Intermediate, Verified 05/02/24 14:21) Nausea and Vomiting Medication List - Last Reconciled 05/02/24 by Nisha Pitts MD acetaminophen (Tylenol) 650 mg PO BID alendronate 70 mg PO QWEEK apixaban (Eliquis) 2.5 mg PO BID cholecalciferol (vitamin D3) 25 mcg PO DAILY cyanocobalamin (vitamin B-12) (Vitamin B-12) 1,000 mcg PO DAILY folic acid 1 mg PO DAILY [id number] 6,000-19,000 -30,000 unit (Creon) 0 caps PO methotrexate sodium 20 mg (8 x 2.5 mg) PO QWEEK metoprolol succinate ER 50 mg PO DAILY valsartan 80 mg PO DAILY HPI Comments Details: 88-year-old female with rheumatoid arthritis returns for follow-up. She remains on methotrexate 20 mg weekly plus folic acid 1 mg daily. She discontinued her prednisone about 2 months ago. Patient tripped on her cat back in December of 2023 and broke her right hip and her right arm. She had a right hip hemiarthroplasty. She stated that she did not require any specific treatment for her right arm fracture. She states that she is recovering well. Her main complaint as was her left shoulder pain and significantly limited range of motion. There are no swollen joints. She is compliant with alendronate but it causes significant GI upset. Most recent history by Dr. Matias 04/2023: The patient returns for evaluation of her rheumatoid arthritis and osteoarthritis. Her son accompanies her. The patient is now on 20 mg weekly methotrexate(she takes 4 tablets of the 2.5 mg methotrexate twice on the day that she takes the methotrexate), prednisone 5 mg in the morning and 2.5 mg in the afternoon, alendronate 70 mg once a week, folic acid 1 mg daily, and 2 or 3 tablets of acetaminophen spread through the day. In general the joints are doing fairly well. She notes the right wrist did much better after the corticosteroid injection a few months ago. She has not required any more injections in the knees from the orthopedist. She recently has moved from [place] to [place] so is closer to her son. She wants to again get starting to do some walking but feels unsteady on her feet. She tried to start physical therapy but apparently that was when she was moving and she lost the prescription. [facility] Medical History (Updated 05/02/24 @ 17:13 by Nisha Pitts MD) Afib Left wrist fracture Surgical History History of right hip hemiarthroplasty H/O Whipple procedure Social History Household Members: Spouse Housing: Apartment Alcohol intake: never Patient Tobacco Use Status: Never used Tobacco e-Cigarette/Vaping Use: Never Used service: No Current occupational status: retired Hearing needs: Yes Vision needs: No Review of Systems Musc Reports arthralgias, Denies joint swelling, Reports limited range of motion, Reports muscle weakness and Reports stiffness Physical Exam Vital Signs: Last Vital Signs Pulse 83 05/02/24 14:24 BP 112/62 05/02/24 14:24 Pulse Ox 98 05/02/24 14:24 Oxygen Delivery Method Room Air 05/02/24 14:24 BMI result Body Mass Index 18.3 Const General: cooperative, healthy appearing and comfortable Nutritional Appearance: thin Orientation/consciousness: patient oriented x3 Limitations: no limitations HEENT Other: A little hard of hearing. Wearing hearing aids Head: Yes normocephalic and Yes atraumatic Mouth: moist mucous membranes Resp Effort & Inspection: normal respiratory effort and able to speak in complete sentences Skin General skin exam: no rashes or lesions noted Neuro General: patient oriented x3 Extrem Other: Osteoarthritic changes of both hands Prominent right 3rd Atif's nodes. Not swollen today No flexor or extensor tendon tenderness Negative MCP squeeze test Normal range of motion of hands wrists elbows without pain Limited left shoulder abduction at about 85 degrees. No knee swelling or tenderness bilaterally No pain with full flexion and extension No ankle swelling or tenderness No MTP tenderness Assessment & Plan Assessment & Plan (1) Rheumatoid arthritis: Comment: Onset ? 2019 - treated with prednisone. +RF+++CCP 04/2022: methotrexate started effective PDN tapered off 02/2024 Code(s): M06.9 - Rheumatoid arthritis, unspecified Category: Medical Qualifiers: Rheumatoid arthritis location: multiple sites Rheumatoid factor presence: unspecified presence Qualified Code(s): M06.9 - Rheumatoid arthritis, unspecified Plan: This is an 88-year-old female seropositive RA who presents for follow-up. Doing very well on methotrexate 20 mg weekly. 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 Patient's sons showed me her blood work from 2 weeks ago which showed normal LFTs, normal creatinine, no leukopenia no thrombocytopenia, no macrocytosis. Did show low hemoglobin at 9.6. I will check iron studies with next set of labs (3) Osteoporosis: Comment: DEXA 08/2023 Left femur neck T-score-2.8 Left femur total -2.8 L-spine T-score -1.9 left wrist fracture Right hip and right arm fracture 12/2023 Alendronate started 03/2023 Code(s): M81.0 - Age-related osteoporosis without current pathological fracture Category: Medical Qualifiers: Osteoporosis type: age-related Presence of current pathological fracture: without current pathological fracture Qualified Code(s): M81.0 - Age-related osteoporosis without current pathological fracture Plan: I Think patient qualifies as having severe osteoporosis given her right hip fracture and right arm fracture this year as well as left wrist fracture in the past. I do not think alendronate would be sufficient given the severity of her osteoporosis. Discussed risks and benefits of Evenity with patient and her son. Discussed the slightly increased risk of cardiovascular events with Evenity. I think however in her case, the benefit outweighs the risk. Patient and her son agreed to proceed. Patient is on Eliquis for AFib DC alendronate. We will start prior authorization for Evenity Continue vitamin-D. Will check levels before next visit (4) Poor balance: Code(s): R26.89 - Other abnormalities of gait and mobility Category: Medical Plan: Referred to PT Plan I spent 46 minutes reviewing patient's chart, evaluating patient, ordering diagnostic workup, counseling patient & son and documenting in the chart Orders: Orders PT Evaluation and Treatment Today M17.0 - Bilateral primary osteoarthritis of knee, R26.89 - Other abnormalities of gait and mobility IRON PROFILE 3 Months D50.9 - Iron deficiency anemia, unspecified Transferrin 3 Months D50.9 - Iron deficiency anemia, unspecified Vitamin D 25-OH (D2 and D3) 3 Months Z79.899 - Other skilled nursing (current) drug therapy Ferritin 3 Months D50.9 - Iron deficiency anemia, unspecified Medications: Refilled methotrexate sodium 20 mg (8 x 2.5 mg) PO QWEEK 96 tabs 0RF M06.9 - Rheumatoid arthritis, unspecified Discontinued alendronate Discontinued Reason: Doctor's Order 70 mg PO QWEEK 12 tabs 3RF Z79.52 - shelter (current) use of systemic steroids Coding Level of Care Code Est Pt Level 5 (05818) Complex EM visit Add On G2211 Diagnoses Rheumatoid arthritis involving multiple sites, unspecified whether rheumatoid factor present M06.9 Rheumatoid arthritis location: multiple sites Rheumatoid factor presence: unspecified presence 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
[2024-05-02 14:24] VITALS: BP 112/62; PULSE 83; O2SAT 98; BMI 18.3
== END 2024-05-02 15:15 | disposition home or self-care (01) ==
PROVIDERS: PCP Family Medicine; Visit Provider Student in an Organized Health Care Education/Training Program
DX: M06.9 Rheumatoid arthritis, unspecified (principal); Z79.899 Other long term (current) drug therapy; M81.0 Age-related osteoporosis without current pathological fracture; R26.89 Other abnormalities of gait and mobility
CPT/HCPCS: 99215; G2211

== ENCOUNTER → 2024-05-02 14:17 | Outpatient (BNVA) | payer MEDICARE, SELFPAY | PROVIDERS: PCP Family Medicine; Visit Provider Student in an Organized Health Care Education/Training Program | DX: M06.9 Rheumatoid arthritis, unspecified (principal); M81.0 Age-related osteoporosis without current pathological fracture; R26.89 Other abnormalities of gait and mobility; Z79.899 Other long term (current) drug therapy | CPT/HCPCS: 99212 ==

== ENCOUNTER 2024-07-03 15:31 | Outpatient (AMB) | payer MEDICARE, SELFPAY ==
--- NOTE | 2024-07-03 15:35 | MHC.OFFVIS ---
Vital Signs 07/03/24 15:41 Height 5 ft 3 in Weight 101 lb 10.13 oz BMI 18.0 BP 124/62 Blood Pressure Location Rt brachial Position Sitting Pulse 73 Pulse Source Pulse Oximeter Pulse Oximetry (%) 99 Oxygen Delivery Method Room Air Intake Visit Reasons: RA Intake Note: Patient presents for RA. Allergies amoxicillin Allergy (Intermediate, Verified 07/03/24 15:40) Nausea and Vomiting Medication List - Last Reconciled 07/03/24 by Nisha Pitts MD acetaminophen (Tylenol) 650 mg PO BID apixaban (Eliquis) 2.5 mg PO BID cholecalciferol (vitamin D3) 25 mcg PO DAILY cyanocobalamin (vitamin B-12) (Vitamin B-12) 1,000 mcg PO DAILY folic acid 1 mg PO DAILY [id number] 6,000-19,000 -30,000 unit (Creon) 0 caps PO methotrexate sodium 20 mg (8 x 2.5 mg) PO QWEEK metoprolol succinate ER 50 mg PO DAILY valsartan 80 mg PO DAILY HPI Comments Details: 88-year-old female with rheumatoid arthritis returns for follow-up. She is here with her son. She remains on methotrexate 20 mg weekly plus folic acid 1 mg daily. She is doing well overall. No new complaints. No recent falls or fractures Most recent history by Dr. Matias 04/2023: The patient returns for evaluation of her rheumatoid arthritis and osteoarthritis. Her son accompanies her. The patient is now on 20 mg weekly methotrexate(she takes 4 tablets of the 2.5 mg methotrexate twice on the day that she takes the methotrexate), prednisone 5 mg in the morning and 2.5 mg in the afternoon, alendronate 70 mg once a week, folic acid 1 mg daily, and 2 or 3 tablets of acetaminophen spread through the day. In general the joints are doing fairly well. She notes the right wrist did much better after the corticosteroid injection a few months ago. She has not required any more injections in the knees from the orthopedist. She recently has moved from [place] to [place] so is closer to her son. She wants to again get starting to do some walking but feels unsteady on her feet. She tried to start physical therapy but apparently that was when she was moving and she lost the prescription. [facility] Medical History Afib Left wrist fracture Surgical History History of right hip hemiarthroplasty H/O Whipple procedure Social History Household Members: Spouse Housing: Apartment Alcohol intake: never Patient Tobacco Use Status: Never used Tobacco e-Cigarette/Vaping Use: Never Used service: No Current occupational status: retired Hearing needs: Yes Vision needs: No Review of Systems Musc Denies joint swelling, Reports limited range of motion, Reports muscle weakness and Reports stiffness Physical Exam Vital Signs: Last Vital Signs Pulse 73 07/03/24 15:41 BP 124/62 07/03/24 15:41 Pulse Ox 99 07/03/24 15:41 Oxygen Delivery Method Room Air 07/03/24 15:41 BMI result Body Mass Index 18.0 Const General: cooperative, healthy appearing and comfortable Nutritional Appearance: thin Orientation/consciousness: patient oriented x3 Limitations: no limitations HEENT Other: A little hard of hearing. Wearing hearing aids Head: Yes normocephalic and Yes atraumatic Mouth: moist mucous membranes Resp Effort & Inspection: normal respiratory effort and able to speak in complete sentences Skin General skin exam: no rashes or lesions noted Neuro General: patient oriented x3 Extrem Other: Osteoarthritic changes of both hands Prominent right 3rd Atif's nodes. Not swollen today No flexor or extensor tendon tenderness Negative MCP squeeze test Normal range of motion of hands wrists elbows without pain Limited left shoulder abduction at about 85 degrees. No knee swelling or tenderness bilaterally No pain with full flexion and extension No ankle swelling or tenderness No MTP tenderness Assessment & Plan Assessment & Plan (1) Rheumatoid arthritis: Comment: Onset ? 2019 - treated with prednisone. +RF+++CCP 04/2022: methotrexate started effective PDN tapered off 02/2024 Code(s): M06.9 - Rheumatoid arthritis, unspecified Category: Medical Qualifiers: Rheumatoid arthritis location: multiple sites Rheumatoid factor presence: unspecified presence Qualified Code(s): M06.9 - Rheumatoid arthritis, unspecified Plan: This is an 88-year-old female seropositive RA who presents for follow-up. Doing very well on methotrexate 20 mg weekly. No active synovitis on exam Continue methotrexate 20 mg weekly plus folic acid 1 mg daily Labs today and before next visit in 3 months (2) detention use of drug: Code(s): Z79.899 - Other care home (current) drug therapy Category: Medical Plan: Monitor safety labs for methotrexate. (3) Osteoporosis: Comment: DEXA 08/2023 Left femur neck T-score-2.8 Left femur total -2.8 L-spine T-score -1.9 left wrist fracture Right hip and right arm fracture 12/2023 Alendronate started 03/2023 Code(s): M81.0 - Age-related osteoporosis without current pathological fracture Category: Medical Qualifiers: Osteoporosis type: age-related Presence of current pathological fracture: without current pathological fracture Qualified Code(s): M81.0 - Age-related osteoporosis without current pathological fracture Plan: I Think patient qualifies as having severe osteoporosis given her right hip fracture and right arm fracture this year as well as left wrist fracture in the past. She qualifies as having severe osteoporosis. I discontinued alendronate last visit and we discussed different medications for osteoporosis. We decided that avidity would be her best choice. Patient agreed to proceed but it was denied by her insurance. Prolia was also denied. Her plan would cover the daily PTH analogs such as Tymlos however patient is adamant that she is unable to do a daily injection. Per patient is planned, Reclast should be covered. We will arrange for Reclast infusion Discussed with patient that she is losing weight and low BMI is associated with low bone mass and increased risk of fractures. Per son patient is now getting meals on wheels and is eating better. She has been trying to drink protein shakes but she does not like the taste. Continue with calcium and vitamin-D supplementation Plan I spent 26 minutes reviewing patient's chart, evaluating patient, ordering diagnostic workup, counseling patient & son and documenting in the chart Orders: Orders Comprehensive Met. Panel 3 Months M06.9 - Rheumatoid arthritis, unspecified, Z79.899 - Other care home (current) drug therapy Erythrocyte Sedimentation Rate 3 Months M06.9 - Rheumatoid arthritis, unspecified, Z79.899 - Other care home (current) drug therapy Complete Blood Count Auto Diff Today M06.9 - Rheumatoid arthritis, unspecified, Z79.899 - Other care home (current) drug therapy Comprehensive Met. Panel Today M06.9 - Rheumatoid arthritis, unspecified, Z79.899 - Other care home (current) drug therapy C Reactive Protein Today M06.9 - Rheumatoid arthritis, unspecified, Z79.899 - Other salvage determiner (current) drug therapy Vitamin D 25-OH Total 3 Months E55.9 - Vitamin D deficiency, unspecified Complete Blood Count Auto Diff 3 Months M06.9 - Rheumatoid arthritis, unspecified, Z79.899 - Other salvage determiner (current) drug therapy C Reactive Protein 3 Months M06.9 - Rheumatoid arthritis, unspecified, Z79.899 - Other care home (current) drug therapy Erythrocyte Sedimentation Rate Today M06.9 - Rheumatoid arthritis, unspecified, Z79.899 - Other salvage determiner (current) drug therapy Ferritin 3 Months D50.9 - Iron deficiency anemia, unspecified IRON PROFILE 3 Months D50.9 - Iron deficiency anemia, unspecified Transferrin 3 Months D50.9 - Iron deficiency anemia, unspecified Coding Level of Care Code Est Pt Level 4 (17645) Complex EM visit Add On G2211 Diagnoses Rheumatoid arthritis involving multiple sites, unspecified whether rheumatoid factor present M06.9 Rheumatoid arthritis location: multiple sites Rheumatoid factor presence: unspecified presence 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
[2024-07-03 15:41] VITALS: BP 124/62; PULSE 73; O2SAT 99; BMI 18.0
== END 2024-07-03 16:17 | disposition home or self-care (01) ==
PROVIDERS: PCP Family Medicine; Visit Provider Student in an Organized Health Care Education/Training Program
DX: M06.9 Rheumatoid arthritis, unspecified (principal); Z79.899 Other long term (current) drug therapy; M81.0 Age-related osteoporosis without current pathological fracture
CPT/HCPCS: 99214; G2211

== ENCOUNTER → 2024-07-03 15:31 | Outpatient (BNVA) | payer MEDICARE, SELFPAY | PROVIDERS: PCP Family Medicine; Visit Provider Student in an Organized Health Care Education/Training Program | DX: M06.9 Rheumatoid arthritis, unspecified (principal); M81.0 Age-related osteoporosis without current pathological fracture; E55.9 Vitamin D deficiency, unspecified; D50.9 Iron deficiency anemia, unspecified; Z79.899 Other long term (current) drug therapy | CPT/HCPCS: 99212 ==

== ENCOUNTER 2024-07-11 12:25 | Outpatient (REF) | payer MEDICARE, SELFPAY ==
[2024-07-11 12:50] LABS: MANUAL DIFF FLAG NO
[2024-07-11 13:41] LABS: Basophils Percent Auto 0.1 % (0-2); Eosinophils Percent Auto 0.1 % (0-4); Hematocrit 34.6 % (37.0-47.0); Hemoglobin 10.9 g/dl (12.0-16.0); Imm Gran Abs Auto 0.02 X10*3/uL (0.00-0.03); Imm Gran Pct Auto 0.3 % (0.0-0.4); Lymphocytes Absolute Auto 1.5 X10*3/uL (1.2-4.9); Lymphocytes Percent Auto 20.4 % (20-40); Mean Corpuscular HGB Conc 31.5 g/dl (31.0-35.0); Mean Corpuscular Hemoglobin 29.9 pg (27.0-33.0); Mean Corpuscular Volume 94.8 fL (80.0-98.0); Monocytes Absolute Auto 0.6 X10*3/uL (0.1-1.2); Monocytes Percent Auto 8.7 % (2-11); Neutrophils Percent Auto 70.4 % (45-73); Platelet Count 491 X10*3/uL (160-400); Red Blood Count 3.65 X10*6/uL (4.20-5.50); Red Cell Distribution Width 15.9 % (11.0-16.0); White Blood Count 7.2 X10*3/uL (4.8-10.8)
[2024-07-11 14:19] LABS: Erythrocyte Sedimentation Rate 58 MM/HR (0-20)
[2024-07-11 14:22] LABS: Albumin Level 3.9 g/dL (3.5-5.0); Alkaline Phosphatase 73 U/L (39-117); Anion Gap 12 (12-20); Aspartate Amino Transferase 35 U/L (5-31); Bilirubin Total 0.3 mg/dL (0.0-1.0); Blood Urea Nitrogen 21 mg/dL (9-16); C Reactive Protein 0.56 mg/dL (< or = 0.50); Calcium 8.8 mg/dL (8.4-10.2); Carbon Dioxide 24 mmol/L (22-29); Chloride 105 mmol/L (96-108); Estimated Glomerular Filt Rate > 60; Glucose Random 180 mg/dL (60-115); Potassium 3.8 mmol/L (3.3-5.1); Sodium 137 mmol/L (135-145); Total Protein 7.2 g/dL (6.5-8.0); Unsaturated Iron Binding 162 ug/dL
[2024-07-11 14:43] LABS: Ferritin 249 ng/mL (10-250)
[2024-07-11 14:54] LABS: Alanine Aminotransferase 34 U/L (0-31)
[2024-07-11 15:14] LABS: Iron 116 mcg/dL (30-160); Percent Iron Saturation 42 % (15-50); Total Iron Binding Capacity 278 mcg/dL (228-428)
[2024-07-14 09:14] LABS: Transferrin 256 mg/dL (188-341)
[2024-07-16 12:53] LABS: Vitamin D 25-OH, D2 <4 ng/mL; Vitamin D 25-OH, D3 53 ng/mL; Vitamin D 25-OH, Total 53 ng/mL (30-100)
== END 2024-07-11 12:26 | disposition home or self-care (01) ==
LOC: HO.LAB 12:25
PROVIDERS: PCP Family Medicine; Visit Provider Student in an Organized Health Care Education/Training Program
DX: M06.9 Rheumatoid arthritis, unspecified (principal); D50.9 Iron deficiency anemia, unspecified; Z79.899 Other long term (current) drug therapy
CPT/HCPCS: 36415; 80053; 82306; 82728; 83540; 84466; 85025; 85652; 86140

== ENCOUNTER 2024-07-23 13:57 | Outpatient (RCR) | payer MEDICARE, SELFPAY ==
[2024-07-23 14:00] VITALS: BP 160/58; PULSE 56; RESP 16; TEMP 36.2; O2SAT 96
[2024-07-23] MEDS: Zoledronic Acid/Mannitol-Water 5 MG/100 ML PGGYBK.BTL IV (14:10)
== END 2024-07-23 14:35 | disposition home or self-care (01) ==
LOC: HO.INF 13:57
PROVIDERS: PCP Family Medicine; Visit Provider Student in an Organized Health Care Education/Training Program
DX: M81.0 Age-related osteoporosis without current pathological fracture (principal)
CPT/HCPCS: 96374; J3489

== ENCOUNTER 2024-11-01 10:31 | Outpatient (REF) | payer MEDICARE, SELFPAY ==
--- OUTSIDE RECORDS SUMMARY | 2024-11-01 10:34 | XMS_ITS | Continuity of Care Document ---
Author Organization [facility] Address [address] [place] [address] Phone Care Team Providers Care Grinding Supervisor Name Role Phone Yobani Esteban MD Unavailable Unavailable Allergies, Adverse Reactions, Alerts Substance Reaction Status Criticality No Known Allergies Active No Inform ation Medications Medication Instructions Dosage Effective Dates (start - stop) Status Comments azelastine 137 mcg (0.1 %) nasal spray aerosol SPRAY 2 SPRAYS INTO EACH NOSTRIL TWICE A DAY - Active metoprolol succinate ER 25 mg tablet,extended release 24 hr take 1 tablet by oral route every day 25 MG - Active hydrochlorothiazide 25 mg tablet take 1 tablet by oral route every day 25 MG - Active amlodipine 5 mg tablet take 1 tablet by oral route every day 5 MG - Active Problems Condition Type Effective Dates (start - stop) Clini josué Status Comments No Known Problems Procedures Procedure Date Canalith Reps Proc Eg Marcos, [place] Man Per Day OV, Estab Pt, Level III OV, Estab Pt, Level III Canalith Reps Proc Eg Marcos, [place] Man Per Day OV, Estab Pt, Level III Canalith Reps Proc Eg Marcos, [place] Man Per Day OV, Estab Pt, Level IV Canalith Reps Proc Eg Marcos, [place] Man Per Day Diagnostic Nasal Endoscopy Addl Supp, Staff Time Health Jessica Due To Inf Dis OV, Estab Pt, Level III OV, Estab Pt, Level IV Suppl/mat Provid-phys Not W/vi 20 Diagnostic Nasal Endoscopy Tympanometry Suppl/mat Provid-phys Not W/vi 20 Pure Tone Audiometry; Air Only 20 HAC 1 Year OV, New Pt, Level III Suppl/mat Provid-phys Not W/vi 20 Canalith Reps Proc Eg Marcos, [place]ont Man Per Day Advance Directives Directive Yes / No Effective Date File Name No Information Encounters Encounter Description Practice Location Reason(s) For Visit Diagnoses Date Provider Providers Copied on Encounter OV, Estab Pt, Level III [facility], [address] [place] [address], [id number] , tel: [phone] [facility] Follow Up (chief complaint) Dizziness and giddinessBenign paroxysmal vertigo, left ear Mar-3 2 Eulalia Hilton. [address], [place], [place], [id number], [place]. tel: [phone] OV, Estab Pt, Level III [facility], [address] [place] [address], [id number] , tel: [phone] [facility] Follow Up (chief complaint) Dizziness and giddinessBenign paroxysmal vertigo, left ear Mar-2 2 Eulalia Hilton. [address], [place], [place], [id number], [place]. tel: [phone] OV, Estab Pt, Level III [facility], [address], [place], [place], [id number] , [place] tel: [phone] [facility] Follow Up (chief complaint) Dizziness and giddinessBenign paroxysmal vertigo, right ear Mar-2 2- 2 Eulalia Hilton. [address], [place], [place], [id number], [place]. tel: [phone] OV, Estab Pt, Level IV [facility], [address] [place] [address], [id number] , [place] tel: [phone] [facility] Follow Up (chief complaint) Dizziness and giddinessAllergy, unspecified, initial encounterBenign paroxysmal vertigo, right earChronic rhinitis 1 Eulalia Hilton. [address], [place], [place], [id number], [place]. tel: [phone] OV, Estab Pt, Level III [facility], [address] [place] [address], [id number] , [place] tel: [phone] [facility] Follow Up (chief complaint) Dizziness and giddinessSensorine ural hearing loss, bilateralBenign paroxysmal vertigo, right ear 0 Eulalia Hilton. [address], [place], [place], [id number], [place]. tel: [phone] OV, Estab Pt, Level IV [facility], [address] [place] [address], [id number] , [place] tel: [phone] [facility] Follow Up (chief complaint) Benign paroxysmal vertigo, right earSensorineural hearing loss, bilateralPostnasal dripChronic rhinitis 0 Eulalia Hilton. [address], [place], [place], [id number], [place]. tel: [phone] [facility], [address] [place] [address], [id number] , [place] tel: [phone] [facility] Unspecified hearing loss, bilateral 0 No Information Referring Provider: Yobani Esteban MD, [address], [place], [address] . tel:[phone] OV, New Pt, Level III [facility], [address], [place], [place], [id number] , tel: [phone] [facility] dizziness (chief complaint) Dizziness and giddinessSensorine ural hearing loss, bilateralAcute maxillary sinusitis, unspecifiedBenign paroxysmal vertigo, right ear 0 Eulalia Hilton. [address], [place], [place], [id number], [place]. 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 Percentile Wt./Nemesio. Percentile BMI percentile Pulse Ox Inhaled Ox 11:03 AM 62.00 in 62.596 kg (138.00 lbs) 25.2 4 kg/m eter (2) Chief Complaint And Reason For Visit From encounter dated '10/06/2021 11:10'. Follow Up (chief complaint). Description: pt with improvement in BPV since a few days ago. scheduled for abd surgery next week. PREVIOUS HPI: (10/03/2021) FOLLOW UP - pt f/u for dizziness, BPV AD, ptreports right side is now fine but she has some sx on left side now. PREVIOUS HPI: (09/27/2021) FOLLOW UP - pt with a bout of dizziness assoc with changes in head position a few days ago. 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 pt scheduled for pancreas mass excision.PREVIOUS HPI: (02/22/2021) FOLLOW UP - pt with multiple compl. pt with many months chronic rhinitis and PND. with throat clearing. no fever. no purulent d/c. pt also with compl of dizziness when getting up in the AM recently. 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 SNHL, hearing aids, no recent changesin hearing. PREVIOUS HPI: (12/25/2019) FOLLOW UP - pt f/u for recent BPV. pt with hx of SNHL and hearing aids, no recent changes in hearing since last eval. pt presently with mild , intermittent sx of dizziness assoc with changes in head position and watching a TV located above eye level. ambulating well.PREVIOUS HPI: (12/03/2019) FOLLOW UP - pt with noted improvement in BPV butwith some mild residual sx when laying down quickly. hx of SNHL, today reviewed with profound HL but doing well with hearing aids, no asym noted. pt also with compl of chronic rhinitis, and recent rx with zpak for sinusitis. congestion and PND and rhinitis moderate. pt requesting further eval. no fever. covid testing negative. PREVIOUS HPI: (11/25/2019) DIZZINESS - Onset was 10 days ago. Severity is mild-moderate. The duration of each episode is varies. It occurs intermittently. The patientdescribes it as (an) spinning. Associated symptoms include hearing loss and tinnitus. Pertinent negatives include chest pain, ear drainage, fever, headache, nausea, otalgia, palpitations, seizures and vomiting. Additional information: pt with compl of dizziness , possible BPV about 10 days ago. worse when laying down. no sudden, acute changes in hearing. pt reports she was given meclizine but it made her very drowsy. pt also with possible sinusitis, and is now on day 2 of 3 of an oral abx. hx of SNHL and hearing aids. Reason For Referral Reason For Referral No Information History Of Present Illness Encounter Date Complaint History Of Prese nt Illness Follow Up pt with improvem ent in BPV since a few days ago. scheduled for abd surgery next week. PREVIOUS HPI: (10/03/2021) FOLLOW UP - pt f/u for dizziness, BPV AD, pt reports right side is now fine but she has some sx on left side now. PREVIOUS HPI: (09/27/2021) FOLLOW UP - pt with a bout of dizziness assoc with changes in head position a few days ago. 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 pt scheduled for pancreas mass excision.PREVIOUS HPI: (02/22/2021) FOLLOW UP - pt with multiple compl. pt with many months chronic rhinitis and PND. with throat clearing. no fever. no purulent d/c. pt also with compl of dizziness when getting up in the AM recently. 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 SNHL, hearing aids, no recent changes in hearing. PREVIOUS HPI: (12/25/2019) FOLLOW UP - pt f/u for recent BPV. pt with hx of SNHL and hearing aids, no recent changes in hearing since last eval. pt presently with mild , intermittent sx of dizziness assoc with changes in head position and watching a TV located above eye level. ambulating well.PREVIOUS HPI: (12/03/2019) FOLLOW UP - pt with noted improvement in BPV but with some mild residual sx when laying down quickly. hx of SNHL, today reviewed with profound HL but doing well with hearing aids, no asym noted. pt also with compl of chronic rhinitis, and recent rx with zpak for sinusitis. congestion and PND and rhinitis moderate. pt requesting further eval. no fever. covid testing negative. PREVIOUS HPI: (11/25/2019) DIZZINESS - Onset was 10 days ago. Severity is mild-moderate. The duration of each episode is varies. It occurs intermittently. The patient describes it as (an) spinning. Associated symptoms include hearing loss and tinnitus. Pertinent negatives include chest pain, ear drainage, fever, headache, nausea, otalgia, palpitations, seizures and vomiting. Additional information: pt with compl of dizziness , possible BPV about 10 days ago. worse when laying down. no sudden, acute changes in hearing. pt reports she was given meclizine but it made her very drowsy. pt also with possible sinusitis, and is now on day 2 of 3 of an oral abx. hx of SNHL and hearing aids. Follow Up pt f/u for dizzi ness, BPV AD, pt reports right side is now fine but she has some sx on left side now. PREVIOUS HPI: (09/27/2021) FOLLOW UP - pt with a bout of dizziness assoc with changes in head position a few days ago. 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 pt scheduled for pancreas mass excision.PREVIOUS HPI: (02/22/2021) FOLLOW UP - pt with multiple compl. pt with many months chronic rhinitis and PND. with throat clearing. no fever. no purulent d/c. pt also with compl of dizziness when getting up in the AM recently. 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 SNHL, hearing aids, no recent changes in hearing. PREVIOUS HPI: (12/25/2019) FOLLOW UP - pt f/u for recent BPV. pt with hx of SNHL and hearing aids, no recent changes in hearing since last eval. pt presently with mild , intermittent sx of dizziness assoc with changes in head position and watching a TV located above eye level. ambulating well.PREVIOUS HPI: (12/03/2019) FOLLOW UP - pt with noted improvement in BPV but with some mild residual sx when laying down quickly. hx of SNHL, today reviewed with profound HL but doing well with hearing aids, no asym noted. pt also with compl of chronic rhinitis, and recent rx with zpak for sinusitis. congestion and PND and rhinitis moderate. pt requesting further eval. no fever. covid testing negative. PREVIOUS HPI: (11/25/2019) DIZZINESS - Onset was 10 days ago. Severity is mild-moderate. The duration of each episode is varies. It occurs intermittently. The patient describes it as (an) spinning. Associated symptoms include hearing loss and tinnitus. Pertinent negatives include chest pain, ear drainage, fever, headache, nausea, otalgia, palpitations, seizures and vomiting. Additional information: pt with compl of dizziness , possible BPV about 10 days ago. worse when laying down. no sudden, acute changes in hearing. pt reports she was given meclizine but it made her very drowsy. pt also with possible sinusitis, and is now on day 2 of 3 of an oral abx. hx of SNHL and hearing aids. Follow Up pt with a bout o f dizziness assoc with changes in head position a few days ago. 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 pt scheduled for pancreas mass excision.PREVIOUS HPI: (02/22/2021) FOLLOW UP - pt with multiple compl. pt with many months chronic rhinitis and PND. with throat clearing. no fever. no purulent d/c. pt also with compl of dizziness when getting up in the AM recently. 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 SNHL, hearing aids, no recent changes in hearing. PREVIOUS HPI: (12/25/2019) FOLLOW UP - pt f/u for recent BPV. pt with hx of SNHL and hearing aids, no recent changes in hearing since last eval. pt presently with mild , intermittent sx of dizziness assoc with changes in head position and watching a TV located above eye level. ambulating well.PREVIOUS HPI: (12/03/2019) FOLLOW UP - pt with noted improvement in BPV but with some mild residual sx when laying down quickly. hx of SNHL, today reviewed with profound HL but doing well with hearing aids, no asym noted. pt also with compl of chronic rhinitis, and recent rx with zpak for sinusitis. congestion and PND and rhinitis moderate. pt requesting further eval. no fever. covid testing negative. PREVIOUS HPI: (11/25/2019) DIZZINESS - Onset was 10 days ago. Severity is mild-moderate. The duration of each episode is varies. It occurs intermittently. The patient describes it as (an) spinning. Associated symptoms include hearing loss and tinnitus. Pertinent negatives include chest pain, ear drainage, fever, headache, nausea, otalgia, palpitations, seizures and vomiting. Additional information: pt with compl of dizziness , possible BPV about 10 days ago. worse when laying down. no sudden, acute changes in hearing. pt reports she was given meclizine but it made her very drowsy. pt also with possible sinusitis, and is now on day 2 of 3 of an oral abx. hx of SNHL and hearing aids. Follow Up pt with multiple compl. pt with many months chronic rhinitis and PND. with throat clearing. no fever. no purulent d/c. pt also with compl of dizziness when getting up in the AM recently. 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 SNHL, hearing aids, no recent changes in hearing. PREVIOUS HPI: (12/25/2019) FOLLOW UP - pt f/u for recent BPV. pt with hx of SNHL and hearing aids, no recent changes in hearing since last eval. pt presently with mild , intermittent sx of dizziness assoc with changes in head position and watching a TV located above eye level. ambulating well.PREVIOUS HPI: (12/03/2019) FOLLOW UP - pt with noted improvement in BPV but with some mild residual sx when laying down quickly. hx of SNHL, today reviewed with profound HL but doing well with hearing aids, no asym noted. pt also with compl of chronic rhinitis, and recent rx with zpak for sinusitis. congestion and PND and rhinitis moderate. pt requesting further eval. no fever. covid testing negative. PREVIOUS HPI: (11/25/2019) DIZZINESS - Onset was 10 days ago. Severity is mild-moderate. The duration of each episode is varies. It occurs intermittently. The patient describes it as (an) spinning. Associated symptoms include hearing loss and tinnitus. Pertinent negatives include chest pain, ear drainage, fever, headache, nausea, otalgia, palpitations, seizures and vomiting. Additional information: pt with compl of dizziness , possible BPV about 10 days ago. worse when laying down. no sudden, acute changes in hearing. pt reports she was given meclizine but it made her very drowsy. pt also with possible sinusitis, and is now on day 2 of 3 of an oral abx. hx of SNHL and hearing aids. Follow Up pt f/u for recen t BPV. pt with hx of SNHL and hearing aids, no recent changes in hearing since last eval. pt presently with mild , intermittent sx of dizziness assoc with changes in head position and watching a TV located above eye level. ambulating well.PREVIOUS HPI: (12/03/2019) FOLLOW UP - pt with noted improvement in BPV but with some mild residual sx when laying down quickly. hx of SNHL, today reviewed with profound HL but doing well with hearing aids, no asym noted. pt also with compl of chronic rhinitis, and recent rx with zpak for sinusitis. congestion and PND and rhinitis moderate. pt requesting further eval. no fever. covid testing negative. PREVIOUS HPI: (11/25/2019) DIZZINESS - Onset was 10 days ago. Severity is mild-moderate. The duration of each episode is varies. It occurs intermittently. The patient describes it as (an) spinning. Associated symptoms include hearing loss and tinnitus. Pertinent negatives include chest pain, ear drainage, fever, headache, nausea, otalgia, palpitations, seizures and vomiting. Additional information: pt with compl of dizziness , possible BPV about 10 days ago. worse when laying down. no sudden, acute changes in hearing. pt reports she was given meclizine but it made her very drowsy. pt also with possible sinusitis, and is now on day 2 of 3 of an oral abx. hx of SNHL and hearing aids. Follow Up pt with noted im provement in BPV but with some mild residual sx when laying down quickly. hx of SNHL, today reviewed with profound HL but doing well with hearing aids, no asym noted. pt also with compl of chronic rhinitis, and recent rx with zpak for sinusitis. congestion and PND and rhinitis moderate. pt requesting further eval. no fever. covid testing negative. PREVIOUS HPI: (11/25/2019) DIZZINESS - Onset was 10 days ago. Severity is mild-moderate. The duration of each episode is varies. It occurs intermittently. The patient describes it as (an) spinning. Associated symptoms include hearing loss and tinnitus. Pertinent negatives include chest pain, ear drainage, fever, headache, nausea, otalgia, palpitations, seizures and vomiting. Additional information: pt with compl of dizziness , possible BPV about 10 days ago. worse when laying down. no sudden, acute changes in hearing. pt reports she was given meclizine but it made her very drowsy. pt also with possible sinusitis, and is now on day 2 of 3 of an oral abx. hx of SNHL and hearing aids. dizziness Onset was 10 day s ago. Severity is mild-moderate. The duration of each episode is varies. It occurs intermittently. The patient describes it as (an) spinning. Associated symptoms include hearing loss and tinnitus. Pertinent negatives include chest pain, ear drainage, fever, headache, nausea, otalgia, palpitations, seizures and vomiting. Additional information: pt with compl of dizziness , possible BPV about 10 days ago. worse when laying down. no sudden, acute changes in hearing. pt reports she was given meclizine but it made her very drowsy. pt also with possible sinusitis, and is now on day 2 of 3 of an oral abx. hx of SNHL and hearing aids. Functional Status Date Functional Assessmen t No Information Instructions Date Instruction Additional Infor estelle Avoid strenuous acti vities as directedStand up and lay down slowlyDo not bend over or climb laddersDo not sleep on the affected ear sideSleep with your back elevated for the next [address] until the symptoms have resolved Related to Dizziness and giddiness Avoid strenuous acti vities as directedStand up and lay down slowlyDo not bend over or climb laddersDo not sleep on the affected ear sideSleep with your back elevated for the next [address] vehicles until the symptoms have resolved Related to Dizziness and giddiness Avoid strenuous acit ivities as directedStand up and lay down slowlyDo not bend over or climb laddersDo not sleep on the affected ear sideSleep with your back elevated for the next [address] vehicles until the symptoms have resolved Related to Dizziness and giddiness Assessments Type Assessment Date assessment Dizziness and giddiness 022 impression SNHL, hearing aids w orking welldizziness much improved. minimal residual BPV , marcos repeatedactivity precautions discussedpt scheduled for abd surgery next weekpt and counseledf/u after surgery as needed if sx persist or recur Mental Status Date Cognitive Assessment Orientation - [place] ed to time, place, person, situation.Normal Orientation Patient Care Teams Name Effective Dates (start - stop) Status Members No Information
[2024-11-01 10:46] LABS: MANUAL DIFF FLAG NO
[2024-11-01 11:26] LABS: Basophils Absolute Auto 0.1 X10*3/uL (0.0-0.2); Basophils Percent Auto 0.9 % (0-2); Eosinophils Absolute Auto 0.2 X10*3/uL (0.0-0.4); Hematocrit 32.4 % (37.0-47.0); Hemoglobin 9.9 g/dl (12.0-16.0); Imm Gran Abs Auto 0.03 X10*3/uL (0.00-0.03); Imm Gran Pct Auto 0.4 % (0.0-0.4); Lymphocytes Absolute Auto 2.7 X10*3/uL (1.2-4.9); Lymphocytes Percent Auto 33.1 % (20-40); Mean Corpuscular HGB Conc 30.6 g/dl (31.0-35.0); Mean Corpuscular Hemoglobin 28.6 pg (27.0-33.0); Mean Corpuscular Volume 93.6 fL (80.0-98.0); Mean Platelet Volume 8.8 fL (9.4-12.3); Monocytes Percent Auto 12.3 % (2-11); Neutrophils Absolute Auto 4.2 x10*3/uL (2.0-8.3); Neutrophils Percent Auto 51.3 % (45-73); Platelet Count 453 X10*3/uL (160-400); Red Blood Count 3.46 X10*6/uL (4.20-5.50); White Blood Count 8.1 X10*3/uL (4.8-10.8)
[2024-11-01 12:17] LABS: Erythrocyte Sedimentation Rate 66 MM/HR (0-20)
[2024-11-01 12:30] LABS: Alanine Aminotransferase 48 U/L (0-31); Albumin Level 3.6 g/dL (3.5-5.0); Alkaline Phosphatase 83 U/L (39-117); Anion Gap 9 (12-20); Aspartate Amino Transferase 44 U/L (5-31); Bilirubin Total 0.2 mg/dL (0.0-1.0); Blood Urea Nitrogen 19 mg/dL (9-16); C Reactive Protein 0.72 mg/dL (< or = 0.50); Calcium 8.8 mg/dL (8.4-10.2); Carbon Dioxide 27 mmol/L (22-29); Chloride 107 mmol/L (96-108); Estimated Glomerular Filt Rate > 60; Glucose Random 74 mg/dL (60-115); Iron 62 mcg/dL (30-160); Percent Iron Saturation 23 % (15-50); Sodium 139 mmol/L (135-145); Total Iron Binding Capacity 265 mcg/dL (228-428); Total Protein 6.8 g/dL (6.5-8.0); Unsaturated Iron Binding 203 ug/dL
[2024-11-01 12:49] LABS: Ferritin 158 ng/mL (10-250); Vitamin D 25-OH Total 56.3 ng/mL (>30)
[2024-11-03 14:23] LABS: Transferrin 243 mg/dL (188-341)
== END 2024-11-01 10:32 | disposition home or self-care (01) ==
LOC: HO.LAB 10:31
PROVIDERS: PCP Family Medicine; Visit Provider Student in an Organized Health Care Education/Training Program
DX: D50.9 Iron deficiency anemia, unspecified (principal); M06.9 Rheumatoid arthritis, unspecified; Z79.899 Other long term (current) drug therapy; E55.9 Vitamin D deficiency, unspecified
CPT/HCPCS: 36415; 80053; 82306; 82728; 83540; 84466; 85025; 85652; 86140

== ENCOUNTER 2024-11-29 10:27 | Outpatient (REF) | payer MEDICARE, SELFPAY ==
--- OUTSIDE RECORDS SUMMARY | 2024-11-29 10:31 | XMS_ITS | Data Portability ---
Author Organization [facility], Main Office Address [address] [place] [address] Care Team Providers Care Child Guidance Counselor Name Role Phone [facility] (NONO UNIT) OTHER [phone] DOMENIC SHIPLEY Primary Care Provider [phone] Assessment Encounter Date Assessment Date Assessment LastModified by Organization Details LastModified Time 01/09/2024 01/09/202412/25: wbc 9.01 hgb 8.6 hct 27.2 na 129 k 4.0 cre 0.30 7/2: wbc 8.64 hgb 10.6 hct 34.9 na 135 k 4.2 cre 0.30 glord Not available 01/09/2024 12:25:11 01/11/2024 01/11/202412/25: wbc 9.01 hgb 8.6 hct 27.2 na 129 k 4.0 cre 0.30 7/2: wbc 8.64 hgb 10.6 hct 34.9 na 135 k 4.2 cre 0.30 glord Not available 01/11/2024 15:31:49 01/15/2024 01/15/202412/25: wbc 9.01 hgb 8.6 hct 27.2 na 129 k 4.0 cre 0.30 7/2: wbc 8.64 hgb 10.6 hct 34.9 na 135 k 4.2 cre 0.30 glord Not available 01/15/2024 11:53:29 01/17/2024 01/17/202412/25: wbc 9.01 hgb 8.6 hct 27.2 na 129 k 4.0 cre 0.30 7/2: wbc 8.64 hgb 10.6 hct 34.9 na 135 k 4.2 cre 0.30 7/9 na 138 k 4 cre 0.30 wbc 6.15 hgb 9.2 hct 30.7 glord Not available 01/16/2024 22:42:16 01/20/2024 01/20/202412/25: wbc 9.01 hgb 8.6 hct 27.2 na 129 k 4.0 cre 0.30 7/: wbc 8.64 hgb 10.6 hct 34.9 na 135 k 4.2 cre 0.30 7/9 na 138 k 4 cre 0.30 wbc 6.15 hgb 9.2 hct 30.7 12/25: wbc 9.01 hgb 8.6 hct 27.2 na 129 k 4.0 cre 0.30 glord Not available 01/20/2024 09:12:23 Plan of Treatment Reminders Order Date Submit Date Provider Last Modified By Organization Details Last Modified Time Details Appointments None record ed. Lab None record ed. Referral None record ed. Procedures None record ed. Surgeries None record ed. Imaging None record ed. Medication Orders None record ed. Patient TargetsNo targets recorded. Patient InstructionsNo instructions recorded. Reason for Referral None Reported. Problems Name Problem SNOMED Code Status Onset Date Resolution Date Notes Provider Name and Address Organization Details Recorded Time Hypertensiv e disorder 59338566 [facility] [address], [place], [address], [facility] [employer] [facility] 4 12:12:25 History of Whipple procedure 2693663611237 08 Active 2023 [employer] [address] , [address], [place], [address], [facility] [employer] [facility] 4 12:12:34 Rheumatoid arthritis 67799924 Active 2023 [employer] , [address], [place], [address], [facility] [email or web address] 4 12:12:42 Fracture of humerus 82921419 Active 2023 [employer] [address] , [address], [place], [address], [facility] [email or web address] 4 12:13:17 Deep venous thrombosis 752792172 Active 2023 [employer] [address] , [address], [place], [address], [facility] 4 12:13:52 Closed fracture of hip 937786889 Active 2023 SANJUANITA Hastings [facility], [address], [place], [address], [facility] 4 09:29:04 Pulmonary embolism 55381490 Active 2023 FELIPE BROWNING [address] [place] [address], [address], [place], [address], [facility] 4 16:51:53 Problem Notes None recorded. Medical Equipment None Reported. Allergies Allergen ID Allergen Name Allergen Category Reaction Reaction Severity Criticality Documentation Date Start Date Code Code System Note Provider Name and Address Organization Details Recorded Time 12902 amoxicill in medicatio n Not available Not available Not available 12/26/2023 723 [employer] SANJUANITA BARAJAS [address] [place] [address], [address], [place], [address], [facility] 4 11:52:56 Medications Not known to be on any medication Vitals None Recorded Social History Question Answer Notes LastModified by Organizat ion Details LastModified Time Tobacco Smoking Status Never Smoker SANJUANITA BARAJAS [address] [place] [address], [facility] [address], [place], [address], [facility] 12/26/2023 11:53:39 Do You Have An Advance Directive? Yes Information not available 12/26/2023 What Is Your Code Status? Full Code Information not available 12/26/2023 Do You Have An Out Of Hospital DNR? No Information not available 12/26/2023 Has Tobacco Cessation Counseling Been Provided? No Information not available 12/26/2023 Sex: Unknown Functional Status Question Answer Note LastModified by Organizat ion Details LastModified Time Do you use any illicit or recreational drugs? No Information not available 12/26/2023 Do you or have you ever used any other forms of tobacco or nicotine? No Information not available 12/26/2023 What is your level of alcohol consumption? None Information not available 12/26/2023 Mental Status None recorded. Family History Nothing Reported Notes:N/C Medical History No medical history recorded. Gynecological HistoryNo gynecological history recorded. Obstetrics History GPAL:G 0 P 0 0 0 0 Immunizations Vaccine Type Date Status Note Provider Nam e and Address Organization Details Recorded Time Respiratory syncytial virus (RSV) vaccine, unspecified 09/21/2023 completed Tania Crump [facility], [facility] 12/27/2023 12:16:10 Td(adult) unspecified formulation 01/18/2023 completed Tania Theron [facility] 12/27/2023 12:16:22 influenza, unspecified formulation 04/06/2022 completed Tania Theron [facility] 12/27/2023 12:16:38 influenza, unspecified formulation 05/01/2023 completed Tania King [facility] 12/27/2023 12:16:45 SARS-COV-2 (COVID-19) vaccine, UNSPECIFIED 07/29/2020 completed Tania Theron [facility] 12/27/2023 12:16:58 SARS-COV-2 (COVID-19) vaccine, UNSPECIFIED 08/20/2020 completed Tania King [facility] 12/27/2023 12:17:06 SARS-COV-2 (COVID-19) vaccine, UNSPECIFIED 04/22/2021 completed [facility] 12/27/2023 12:17:16 SARS-COV-2 (COVID-19) vaccine, UNSPECIFIED 05/01/2023 completed [employer] [facility] 12/27/2023 12:17:29 SARS-COV-2 (COVID-19) vaccine, UNSPECIFIED 09/21/2023 completed [employer] [facility] 12/27/2023 12:17:36 Past Encounters Encounter ID Performer Location Encounter Start Date Encounter Closed Date Diagnosis/Indication Diagnosis SNOMED-CT Code Diagnosis ICD10 Code Diagnosis Note [id number] SANJUANITA Blake at [facility] on [address] [place] [address] 12/27/2023 11:35:58 01/01/2024 10:29:14 Closed fracture of hip 565209978 S72.001D XR in ED showed an acute minimally displaced right subcapital fracture of the femurnow sp right hip hemiarthro plasty with Dr Butler on 12/20Pain controlled with tylenol in hospital-P T/OT for strength and mobility-w eight bearing as tolerated with posterior hip precaution s-follow up with ortho PA on 12/31 at 1030-follo w up with Dr Butler on 01/30 at 1145-tylen ol 650 mg po every 6 hours for pain Fracture of humerus 6630 8002 S42.301D Acute nondisplac ed right greater tuberosity fracture. No evidence of glenohumer al dislocatio n. No surgical interventi on needs.-Non weight bearing to right upper extremity- sling on at all times-orth o follow up arranged Deep venou s thrombosis 031879714 I82.409 Patient hypoxic during hospitaliz ation requiring 2 L O2. CTA confirmed bilateral subsegment al PEs no heart strain.-el iquis 10 mg by mouth twice daily x 7 days followed by 5 mg p.o. twice daily thereafter .-will need AC indefinite ly dt ho DVT-monito r resp status-on RA Hypertensive disorder 38 467096 I10 systolic BP slightly above goal ranging 120-150sam lodipine held in hospital for hypotensio n, restarted on dcplan to closely monitor bp, suspect it will stabilize after a few doses-amlo dipine 5 mg daily-topr ol XL 50 mg daily-vals mike 80 mg daily-clos yannick monitor BP and titrate if continues to be above goal Rheumatoid arthritis 698 70907 M06.9 h/o, continue home regimen-me thotrexate 2.5 mg-prednis one 2.5 mg daily-gluc osamine 500 mg TID History of Whipple procedure 7320451067 36257 Z90.410 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 Uses pancreatic enzymes.-c ontinue creon prn up to 3 meals per day Osteoporosis 80107583 M8 1.0 -fosamax 70 mg once weekly-vit vogt D3 50 mcg daily Anemia 565300767 D64.9 h/oworsene d by surgical blood losshgb stable now 8.6-monito r h/h-ferrou s sulfate 325 mg daily-foli c acid 1 mg daily [id number] FELIPE BROWNING at [facility] on [address] [place] [address] 12/31/2023 13:22:21 01/04/2024 08:45:34 Closed fracture of hip 042464963 S72.001D -PT/OT for strength and mobility-w eight bearing as tolerated with posterior hip precaution s-follow up with ortho PA on 12/31 at 1030-follo w up with Dr Butler on 01/30 at 1145-tylen ol 650 mg po every 6 hours for pain Fracture of humerus 6630 8002 S42.301D Acute nondisplac ed right greater tuberosity fracture. No evidence of glenohumer al dislocatio n. No surgical interventi on needs.-Non weight bearing to right upper extremity- sling on at all times-orth o follow up arranged Deep venou s thrombosis 969550735 I82.409 -will need AC indefinite ly dt ho DVT-monito r resp status-on RA Hypertensive disorder 38 847472 I10 today BP 116/61-aml odipine 5 mg daily-topr ol XL 50 mg daily-vals mike 80 mg daily-clos yannick monitor BP and titrate if continues to be above goal Rheumatoid arthritis 698 37130 M06.9 h/o, continue home regimen-me thotrexate 2.5 mg-prednis one 2.5 mg daily-gluc osamine 500 mg TID Osteoporosis 42028849 M8 1.0 -fosamax 70 mg once weekly-vit vogt D3 50 mcg daily Anemia 691888612 D64.9 h/oworsene d by surgical blood losshgb stable now 8.6-monito r h/h-ferrou s sulfate 325 mg daily-foli c acid 1 mg daily Pulmonary embolism 93157 003 I26.99 Patient hypoxic during hospitaliz ation requiring 2 L O2. CTA confirmed bilateral subsegment al PEs no heart strain.con tinue eliquis 10 mg by mouth twice daily x 7 days followed by 5 mg p.o. twice daily thereafter .will need AC indefinite ly dt ho DVTmonitor resp statustoda y on exam there is no resp. concerns. [id number] FELIPE BROWNING at [facility] on [address] [place] [address] 01/02/2024 10:48:39 01/04/2024 08:57:44 Closed fracture of hip 235167559 S72.001D -PT/OT for strength and mobility-w eight bearing as tolerated with posterior hip precaution s-follow up with ortho PA on 12/31 at 1030-follo w up with Dr Butler on 01/30 at 1145-tylen ol 650 mg po every 6 hours for pain Fracture of humerus 6630 8002 S42.301D -Non weight bearing to right upper extremity- sling on at all times-orth o follow up arranged Deep venou s thrombosis 569522163 I82.409 -will need AC indefinite ly dt ho DVT-monito r resp status-on RA Hypertensive disorder 38 999021 I10 -amlodipin e 5 mg daily-topr ol XL 50 mg daily-vals mike 80 mg daily-clos yannick monitor BP and titrate if continues to be above goal Rheumatoid arthritis 698 38831 M06.9 h/o, continue home regimen-me thotrexate 2.5 mg-prednis one 2.5 mg daily-gluc osamine 500 mg TID Osteoporosis 49346885 M8 1.0 -fosamax 70 mg once weekly-vit vogt D3 50 mcg daily Anemia 842624061 D64.9 h/oworsene d by surgical blood losshgb stable now 8.6-monito r h/h-ferrou s sulfate 325 mg daily-foli c acid 1 mg daily Pulmonary embolism 38153 003 I26.99 continue eliquis 10 mg by mouth twice daily x 7 days followed by 5 mg p.o. twice daily thereafter .will need AC indefinite ly dt ho DVTmonitor resp status [id number] Niraj Wells MD [facility] at [facility] on [address] [place] [address] 01/03/2024 09:32:50 01/07/2024 09:52:24 Recurrent falls 103810597 R29.6 PT OT eval and treatmonit or fall risk and need for increased support in community Closed fra cture of hip 231450278 S72.001D see HPIright hip fxeval by ortho s/p surgical repairmoni tor for pain controlfol low ortho recs and update with concernson eliquis taper to 5 mg bid Fracture of humerus 6630 8002 S42.301D non-displa latanya right shoulder fxconserva tive treatmentf ollow ortho recs and update with concerns Deep venou s thrombosis 070354059 I82.409 noted PEstarted on eliquis 10 mg to 5 mg bidcurrent ly plan is indefinite coverage Hypertensive disorder 38 957631 I10 medication s titrated now onnorvasc 5 mg qdmetoprol ol 50 mg qdvalsarta n 80 mg qdmonitor bp and need to titrate Rheumatoid arthritis 698 56929 M06.9 discharged from hospital on methotrexa te 2.5 mg with no frequencya nd prednisone 2.5 mg qdhold methotrexa te until dose and frequency until can be clarifyord er written to clarify History of Whipple procedure 5531375846 09925 Z90.410 added to PMH Osteoporosis 27230595 M8 1.0 fosamax 70 mg q weekcontin ued Anemia 289721854 D50.8 monitor cbc post opiron studies prn [id number] SANJUANITA Blake at [facility] on [address] [place] [address] 01/09/2024 11:44:07 01/14/2024 15:59:32 Closed fracture of hip 934699089 S72.001D had ortho f/up 12/31 with repeat XR confirming hip is healing and in good alignment- PT/OT for strength and mobility-w eight bearing as tolerated- posterior hip precaution s X 3 mos-follow up with Dr Butler on 01/30 at 1145-[facility] ol 650 mg po every 6 hours for pain Fracture of humerus 6630 8002 S42.301D had ortho f/up 12/31 with repeat XR-Non weight bearing to right upper extremity- pendulum, Passive and AAROM-ok to use right hand as tolerated- sling for comfort-or tho follow up arranged 01/30 with repeat shoulder XR Hypertensive disorder 38 421412 I10 blood pressures well controlled 113/62-con tinue amlodipine 5 mg daily-cont inue toprol XL 50 mg daily-cont inue valsartan 80 mg daily-maria e tor BP and titrate prn Anemia 355828276 D64.9 carrying dx, then worsened by surgical blood lossh/h trending up to 10.6 and 34.9-monit or h/h-contin ue ferrous sulfate 325 mg daily-cont inue folic acid 1 mg daily Headache 77827659 R51.9 with inner ear fullnessea rs are clearthis has been going on for months-ENT scheduled 01/23-monit or-tylenol 650 Q6H for WEINER [id number] SANJUANITA LORD Blake at [facility] on [address] [place] [address] 01/11/2024 08:08:20 01/15/2024 07:53:42 Closed fracture of hip 462297242 S72.001D had ortho f/up 12/31 with repeat XR confirming hip is healing and in good alignment- PT/OT for strength and mobility-w eight bearing as tolerated- posterior hip precaution s X 3 mos-follow up with Dr Butler on 01/30 at 1145-tylen ol 650 mg po every 6 hours for pain Fracture of humerus 6630 8002 S42.301D had ortho f/up 12/31 with repeat XR-Non weight bearing to right upper extremity- pendulum, Passive and AAROM-ok to use right hand as tolerated- sling for comfort-or tho follow up arranged 01/30 with repeat shoulder XR Hypertensive disorder 38 987056 I10 BP yesterday 91/58Reche cked today and its back to normal 122/62-con tinue amlodipine 5 mg daily-cont inue toprol XL 50 mg daily-cont inue valsartan 80 mg daily-maria e tor BP and titrate prn [id number] SANJUANITA LORD Blake at [facility] on [address] [place] [address] 01/15/2024 09:32:26 01/22/2024 10:11:42 Closed fracture of hip 258554614 S72.001D had ortho f/up 12/31 with repeat XR confirming hip is healing and in good alignment- PT/OT for strength and mobility-a ppealing discharge decision-w eight bearing as tolerated- posterior hip precaution s X 3 mos-follow up with Dr Butler on 01/30 at 1145-tylen ol 650 mg po every 6 hours for pain Fracture of humerus 6630 8002 S42.301D had ortho f/up 12/31 with repeat XR-Non weight bearing to right upper extremity- pendulum, Passive and AAROM-ok to use right hand as tolerated- sling for comfort-or tho follow up arranged 01/30 with repeat shoulder XR Hypertensive disorder 38 291712 I10 well controlled -continue amlodipine 5 mg daily-cont inue toprol XL 50 mg daily-cont inue valsartan 80 mg daily-maria e tor BP and titrate prn [id number] SANJUANITA Blake at [facility] on [address] [place] [address] 01/17/2024 10:43:23 01/22/2024 11:34:23 Closed fracture of hip 295613719 S72.001D had ortho f/up 12/31 with repeat XR confirming hip is healing and in good alignment- tylenol 650 mg po every 6 hours for pain-lost appeal = private pay until 01/20 = family hiring live in career services director-will continue w/ PT/OT for strength and mobility-w eight bearing as tolerated- posterior hip precaution s X 3 mos-follow up with Dr Butler on 01/30 at 1145 Fracture of humerus 6630 8002 S42.301D had ortho f/up 12/31 with repeat XR-NWB to YSABEL- pendulum, Passive and AAROM-ok to use right hand as tolerated- sling for comfort-or tho follow up arranged 01/30 with repeat shoulder XR Hypertensive disorder 38 952593 I10 well controlled -continue amlodipine 5 mg daily-cont inue toprol XL 50 mg daily-cont inue valsartan 80 mg daily-maria e tor BP and titrate prn [id number] SANJUANITA Blake at [facility] on [address] [place] [address] 01/20/2024 09:09:07 01/25/2024 08:59:54 Closed fracture of hip 788227871 S72.001D had ortho f/up 12/31 with repeat XR confirming hip is healing and in good alignment- tylenol 650 mg po every 6 hours for pain-will continue w/ PT/OT for strength and mobility with vna-weight bearing as tolerated- posterior hip precaution s X 3 mos-follow up with Dr Butler on 01/30 at 1145 Fracture of humerus 6630 8002 S42.301D had ortho f/up 12/31 with repeat XR-NWB to [place]SABEL- pendulum, Passive and AAROM-ok to use right hand as tolerated- sling for comfort-or tho follow up arranged 01/30 with repeat shoulder XR Hypertensive disorder 38 786733 I10 well controlled -continue amlodipine 5 mg daily-cont inue toprol XL 50 mg daily-cont inue valsartan 80 mg daily Deep venou s thrombosis 548772597 I82.409 Patient hypoxic during hospitaliz ation requiring 2 L O2. CTA confirmed bilateral subsegment al PEs no heart strain.-el iquis 5 mg p.o. 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 Uses pancreatic enzymes.-c ontinue creon prn up to 3 meals per day Osteoporosis 28633245 M8 1.0 -fosamax 70 mg once weekly-vit vogt D3 50 mcg daily Anemia 874089514 D64.9 -ferrous sulfate 325 mg daily-foli c acid 1 mg daily Health Concerns Section Related Observation LastModified by Organization Detai ls LastModified Time None Recorded Concern Status LastModified by Organization Details LastModified Time None Recorded Advance Directives Directive Y: Payers Encounter Date Sequence Insurance Name Policy Number Policy Frederick Covered Member ID Frederick Member ID Guarantor Name 01/09/2024 1 [facility] (MEDICARE REPLACEMENT/A DVANTAGE - PPO) [id number] Jing Rosales [id number] Jing Rosales 01/11/2024 1 [facility] (MEDICARE REPLACEMENT/A DVANTAGE - PPO) [id number] Jing Rosales [id number] Jing Rosales 01/15/2024 1 [facility] (MEDICARE REPLACEMENT/A DVANTAGE - PPO) [id number] Jing Rosales [id number] Jing Rosales 01/17/2024 1 [facility] (MEDICARE REPLACEMENT/A DVANTAGE - PPO) [id number] Jing Rosales [id number] Jing Rosales 01/20/2024 1 [facility] (MEDICARE REPLACEMENT/A DVANTAGE - PPO) [id number] Jing Rosales [id number] Jing Rosales Notes Date Note Type Note Provider Name and Address Organization Details Recorded Time 01/09/2024 text/html This is a 88 yr old female seen today for acute rounding visit. She presented to the ED on 12/19 status post fall found to have right hip and right proximal humerus fracture. She was taken to the OR on 12/[address] Butler for repair of her hip. Her shoulder did not require surgical intervention and was placed in a sling. Her pain was mild and controlled with tylenol. PT recommended transfer to a SNF when medically clear. She is weight bearing as tolerated with ortho follow up in 2-4 weeks. She is now 2 weeks post op. She had follow up with the surgeon on 01/01. Her pain is fairly well controlled. She says she has good days and bad days and todays not a good day due to her headaches and inner ear fullness. She tells me no one can figure it out but she has an ENT apt on 01/23.PMH of anemia, osteoarthritis, rheum arthritis, GERD, hypertension, pancreatic cancer s/p Whipple [address], [address], [place], [address], [email or web address] 01/09/2024 12:26:45 01/11/2024 text/html This is a 88 yr old female seen today for acute rounding visit. She presented to the ED on 12/19 status post fall found to have right hip and right proximal humerus fracture. She was taken to the OR on 12/[address] Butler for repair of her hip. Her shoulder did not require surgical intervention and was placed in a sling. Her pain was mild and controlled with tylenol. PT recommended transfer to a SNF when medically clear. She is weight bearing as tolerated with ortho follow up in 2-4 weeks. Seen today, she is doing well and has no pain. She is progressing well with therapy. She saw both PT and OT today.PMH of anemia, osteoarthritis, rheum arthritis, GERD, hypertension, pancreatic cancer s/p Whipple [address], [address], [place], [address], [employer] 01/11/2024 15:34:49 01/15/2024 text/html This is a 88 yr old female seen today for acute rounding visit. She presented to the ED on 12/19 status post fall found to have right hip and right proximal humerus fracture. She was taken to the OR on 12/[address] Butler for repair of her hip. Her shoulder did not require surgical intervention and was placed in a sling. Her pain was mild and controlled with tylenol. PT recommended transfer to a SNF when medically clear. She is weight bearing as tolerated with ortho follow up in 2-4 weeks. Patient seen today with family at bedside calling to appeal the decision for her to be discharged. She has no complaints and no concerns per nursing. PMH of anemia, osteoarthritis, rheum arthritis, GERD, hypertension, pancreatic cancer s/p Whipple [address], [place], [address], [employer] 01/15/2024 12:17:48 01/17/2024 text/html This is a 88 yr old female seen today for acute rounding visit. She presented to the ED on 12/19 status post fall found to have right hip and right proximal humerus fracture. She was taken to the OR on 12/[address] Butler for repair of her hip. Her shoulder did not require surgical intervention and was placed in a sling. Her pain was mild and controlled with tylenol. PT recommended transfer to a SNF when medically clear. She is weight bearing as tolerated with ortho follow up in 2-4 weeks. Patient lost her appeal but will remain at [facility] until [facility]20 while family works on hiring a live in career services director to ease her transition back home. She is sitting in her wc reading a book. She has no complaints or concerns today and is feeling wellPMH of anemia, osteoarthritis, rheum arthritis, GERD, hypertension, pancreatic cancer s/p Whipple [address], [address], [place], [address], [facility] [employer] 01/17/2024 10:45:55 01/20/2024 text/html This is a 88 yr old female seen today for tele meddischarge summary. She presented to the ED on 12/19 status post fall found to have right hip and right proximal humerus fracture. She was taken to the OR on 12/[address] Butler for repair of her hip. Her shoulder did not require surgical intervention and was placed in a sling. Her pain was mild and controlled with tylenol. PT recommended transfer to a SNF when medically clear. She is weight bearing as tolerated with ortho follow up in 2-4 weeks. Family is hiring a live in career services director to ease her transition back home. She is sitting in her wc reading a book. She has no complaints or concerns today and is feeling well, ok to dc home with meds and services.PMH of anemia, osteoarthritis, rheum arthritis, GERD, hypertension, pancreatic cancer s/p [employer] 2021 SANJUANITA BARAJAS [address] [place] [address], [address], [place], [address], [facility] 01/22/2024 12:18:58 OBGyn Episode No OBEpisode recorded.
[2024-11-29 11:51] LABS: Alanine Aminotransferase 36 U/L (0-31); Alkaline Phosphatase 73 U/L (39-117); Anion Gap 14 (12-20); Aspartate Amino Transferase 26 U/L (5-31); Bilirubin Total 0.4 mg/dL (0.0-1.0); Blood Urea Nitrogen 14 mg/dL (9-16); Calcium 9.6 mg/dL (8.4-10.2); Carbon Dioxide 28 mmol/L (22-29); Chloride 101 mmol/L (96-108); Estimated Glomerular Filt Rate > 60; Glucose Random 122 mg/dL (60-115); Potassium 3.8 mmol/L (3.3-5.1); Sodium 139 mmol/L (135-145); Total Protein 7.5 g/dL (6.5-8.0)
== END 2024-11-29 10:28 | disposition home or self-care (01) ==
LOC: HO.LAB 10:27
PROVIDERS: PCP Family Medicine; Visit Provider Student in an Organized Health Care Education/Training Program
DX: R74.01 Elevation of levels of liver transaminase levels (principal)
CPT/HCPCS: 36415; 80053

== ENCOUNTER 2025-02-04 15:33 | Outpatient (AMB) | payer MEDICARE, SELFPAY ==
--- NOTE | 2025-02-04 15:38 | MHC.OFFVIS ---
Vital Signs 02/04/25 15:45 Height 5 ft 3 in Weight 110 lb 0.171 oz BMI 19.5 BP 134/62 Blood Pressure Location Rt brachial Position Sitting Pulse 54 Pulse Source Pulse Oximeter Pulse Oximetry (%) 97 Oxygen Delivery Method Room Air Intake Visit Reasons: RA Intake Note: Patient presents for RA follow up. Allergies amoxicillin Allergy (Intermediate, Verified 02/04/25 15:44) Nausea and Vomiting Medication List - Last Reconciled 02/04/25 by Joseline Garvey MD acetaminophen (Tylenol) 650 mg PO BID amlodipine 5 mg PO DAILY apixaban (Eliquis) 2.5 mg PO BID cholecalciferol (vitamin D3) 25 mcg PO DAILY cyanocobalamin (vitamin B-12) (Vitamin B-12) 1,000 mcg PO DAILY folic acid 1 mg PO DAILY pfsfiq-vyeorqiz-gsvmslv 6,000-19,000 -30,000 unit (Creon) 0 caps PO methotrexate sodium 10 mg (4 x 2.5 mg) PO QWEEK metoprolol succinate ER 50 mg PO DAILY prednisone 5 mg PO DIRECTED prednisone 5 mg PO DAILY valsartan 80 mg PO DAILY HPI Comments Details: Patient is an 89-year-old female with hypertension, Afib on Eliquis, polyarticular osteoarthritis (s/p right THR), osteoporosis and rheumatoid arthritis here today for follow up Interval History: Patient last seen 07/03/[address] Pitts - Mtx 20mg, folic acid 1mg - Doing well no complaints - Transaminitis: Mtx decreased to 15mg and then 10mg Since then - Had a flare and was given a taper Today, - flare resolved - Left knee pain, left shoulder pain Rheumatologic History: RA Onset ? 2018 - treated with prednisone. +RF+++CCP 04/2022: methotrexate started effective PDN tapered off 02/2024 Most recent history by Dr. Matias 04/2023: The patient returns for evaluation of her rheumatoid arthritis and osteoarthritis. Her son accompanies her. The patient is now on 20 mg weekly methotrexate(she takes 4 tablets of the 2.5 mg methotrexate twice on the day that she takes the methotrexate), prednisone 5 mg in the morning and 2.5 mg in the afternoon, alendronate 70 mg once a week, folic acid 1 mg daily, and 2 or 3 tablets of acetaminophen spread through the day. In general the joints are doing fairly well. She notes the right wrist did much better after the corticosteroid injection a few months ago. She has not required any more injections in the knees from the orthopedist. She recently has moved from [place] to [place] so is closer to her son. She wants to again get starting to do some walking but feels unsteady on her feet. She tried to start physical therapy but apparently that was when she was moving and she lost the prescription. Current Rheumatology Medication(s): Reclast IV 5mg yearly (last dose 07/2024) Methotrexate 10 mg PO weekly Folic acid 1mg daily Prednisone 5mg PFSH Medical History Afib Left wrist fracture Surgical History History of right hip hemiarthroplasty H/O Whipple procedure Social History Household Members: Spouse Housing: Apartment Alcohol intake: never Patient Tobacco Use Status: Never used Tobacco e-Cigarette/Vaping Use: Never Used service: No Current occupational status: retired Hearing needs: Yes Vision needs: No Review of Systems Const Details: Review of Systems Constitutional: Denies fever, chills, weight loss ENT: Denies vision changes, eye pain or eye redness, dental caries, dry mouth GI: Denies nausea, vomiting, diarrhea, abdominal pain, change in BM Pulm: Denies SOB, KHANNA, hemoptysis, wheezing Cards: Denies chest pain, palpitations Skin: Denies Raynaud's, rash, nail changes, photosensitivity, F[employer]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 Well appearing and in no apparent painful distress MSK Hands Right Hand: Able to make a fist. No swelling or tenderness to palpation of these joints. Left Hand: Able to make a fist. No swelling or tenderness to palpation of these joints. Squarring of the 1st [facility] [place] nodes noted bilaterally Wrists Right Wrist: Full ROM. 70 degrees of wrist flexion, 80 degrees of wrist extension. No swelling or TTP Left Wrist: Full ROM. 70 degrees of wrist flexion, 80 degrees of wrist extension. No swelling or TTP Elbows Right Elbow: Full ROM. No swelling or TTP. No TTP of the medial and lateral epicondyles Left Elbow: Full ROM. No swelling or TTP. No TTP of the medial and lateral epicondyles Shoulders Right shoulder: Full ROM. No swelling noted. No TTP of the AC joint, subacromial bursa or posterior shoulder Left shoulder: Significantly decreased ROM. No swelling noted. No TTP of the AC joint, subacromial bursa or posterior shoulder Knees Right knee: Full ROM. No swelling noted. No TTP of the knee joint lie or pes anserine bursa Left knee: Full ROM. Mild swelling noted. TTP of the knee joint lie Ankles Right ankle: Good ankle dorsiflexion and plantar flexion. No TTP of the ankle joint Left ankle: Good ankle dorsiflexion and plantar flexion. No TTP of the ankle joint Pitting edema noted around the ankle Feet Right foot: Negative squeeze test Left foot: Negative squeeze test Tender points? No tenderness to palpation of the bilateral trapezius, supraspinatus, anterior costochondral junctions, bilateral suboccipital muscle insertions SKIN No rashes Thin skin Vital Signs: Last Vital Signs Pulse 54 02/04/25 15:45 BP 134/62 02/04/25 15:45 Pulse Ox 97 02/04/25 15:45 Oxygen Delivery Method Room Air 02/04/25 15:45 BMI result Body Mass Index 19.5 Office Procedures AMB Joint Injection/Aspiration Joint Injection/Aspiration Details: Procedure was explained to the patient and informed consent was obtained. ? Risks associated with the procedure were discussed with the patient including but not limited to bleeding, infection, drug reactions and reactions to the topical anesthetic. Patient made aware of signs to look out for infectious complications. The area of interest was identified and confirmed with patient. ?This was subsequently cleaned with chlorhexidine x 2. ? The area was then anesthetized using ethyl chloride spray. 40 mg Kenalog with 1 cc 1% lidocaine was injected without issue. ?Minimal to no bleeding. ?Patient tolerated procedure. Primary Site: left knee Prep: site was prepped using aseptic technique and ethochloride spray was applied Injected: 40 mg of, Kenalog, with 1 mL of and 1% plain lidocaine Procedure: The patient tolerated the procedure well Coding 88403 - Large joint Procedure code (CPT) selection complete Office Meds lidocaine (PF) 10 mg/mL (1 %) injection solution Performing Provider: Joseline Garvey MD Performing Location: [facility] Rheumatology Administered by: Parul Cummings RN on 02/04/25 16:22 Dose Route Admin Location Dispensed Lot Number Expiration Date [facility] Laboratory Supervisor 1 mL Infiltration 2 mL [id number] 12/06/26 61213-451-88 [employer] Total Dispensed Waste 2 mL 50 % Kenalog 40 mg/mL suspension for injection Performing Provider: Joseline Garvey MD Performing Location: [facility] Rheumatology Administered by: Parul Cummings RN on 02/04/25 16:22 Dose Route Admin Location Dispensed Lot Number Expiration Date [facility] Laboratory Supervisor 40 mg intra-articular 1 mL [id number] 01/05/26 [address]-4 [employer] Total Dispensed Waste 1 mL 0 % Results Reviewed Results Reviewed: Laboratory Tests 11/01/24 11/29/24 10:45 10:41 WBC 8.1 RBC 3.46 L Hgb 9.9 L Hct 32.4 L Plt Count 453 H ESR 66 H Sodium 139 Potassium 3.8 Chloride 101 Carbon Dioxide 28 BUN 14 Creatinine 0.53 AST 26 ALT 36 H C-Reactive Protein 0.72 H 25-OH Vitamin D Total 56.3 Laboratory Tests 10/29/23 10:25 Rheumatoid Factor 31.4 H Cycl Citrul Peptide IgG >250 H DEXA 08/2023 FINDINGS: LEFT FEMUR, NECK: BMD 0.649 g/cm2, Z-score -0.2, T-score -2.8, osteoporosis. LEFT FEMUR, TOTAL: BMD 0.654 g/cm2, Z-score -0.2, T-score -2.8, osteoporosis. AP SPINE L2-L4 (excluding L1): The data of L1-L4 has been changed to exclude the L1 vertebral body, because kyphoplasty at this level may cause overestimation of lumbar spine density. BMD 0.967 g/cm2, Z-score 0.3, T-score -1.9, osteopenia. Assessment & Plan Assessment & Plan (1) Rheumatoid arthritis: Comment: Onset ? 2019 - treated with prednisone. +RF+++CCP 04/2022: methotrexate started effective PDN tapered off 02/2024 Code(s): M06.9 - Rheumatoid arthritis, unspecified Category: Medical Qualifiers: Rheumatoid arthritis location: multiple sites Rheumatoid factor presence: unspecified presence Qualified Code(s): M06.9 - Rheumatoid arthritis, unspecified Plan: #Seropositive RA Patient is an 89-year-old female with seropositive rheumatoid arthritis here today for follow up. Patient recently got a prednisone taper secondary to a flare in the setting of reducing her methotrexate because of transaminitis. Discussed with patient and son that her prednisone use needs to be limited because of the adverse effects. We will start hydroxychloroquine Plan - Hydroxychloroquine 200mg daily - Prednisone 5mg daily - Stop methotrexate and folic acid - RTC 4 months - Labs before visit: CBC, CMP, ESR, CRP (2) Osteoporosis: Comment: DEXA 08/2023: Left femur neck -2.8, Left femur total -2.8, L-spine -1.9 left wrist fracture Right hip and right arm fracture 12/2023 Alendronate started 03/2023 IV Reclast 5mg yearly (07/2024) Code(s): M81.0 - Age-related osteoporosis without current pathological fracture Category: Medical Qualifiers: Osteoporosis type: age-related Presence of current pathological fracture: without current pathological fracture Qualified Code(s): M81.0 - Age-related osteoporosis without current pathological fracture Plan: #Osteoporosis Patient with osteoporosis on IV Reclast infusions. 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 Category: Medical Plan: #Long-term Use of Steroids Discussed with patient the risks and benefits of steroid for managing the rheumatic condition Benefits include: - Reduced pain, improved mobility, increased participation in activities, and decreased progression of disease Risks include: - GI upset, potential ultrasound worsening or formation (especially in patients > 65 years old), elevated blood pressure/worsening hypertension, elevated blood sugar/worsening diabetes control, worsening of bone density, elevated lipids/worsening triglycerides, cataract formation, weight gain Recommended using proton pump inhibitors (PPIs) for the duration of steroid use to reduce the risk of gastric ulcers and vitamin-D daily to reduce the risk of osteoporosis Labs checked: A1c, T spot, hepatitis-B and C serologies Pneumocystis jiroveci prophylaxis: Patient with risk factors including steroids greater than 50 mg for more than 30 days, age greater than 60 years, and lung involvement from underlying rheumatic disease requires prophylaxis and will be given so (5) Encounter for ongoing osteoporosis therapy, bisphosphonates: Code(s): M81.0 - Age-related osteoporosis without current pathological fracture; Z79.83 - senior care (current) use of bisphosphonates Plan: #Long-term Use of Bisphosphonates Risks and benefits of bisphosphonates in the management of osteoporosis Benefits include improved bone density, decreased fracture risk Risks include atypical femoral fractures, GI upset, esophageal strictures Contraindicated in patients with a creatinine clearance < 30 to 35 ml/min Keep vitamin-D at least 35 ng/mL (6) Encounter for monitoring of hydroxychloroquine therapy: Code(s): Z51.81 - Encounter for therapeutic drug level monitoring; Z79.899 - Other [place] [facility] (current) drug therapy Plan: #Long-term Use of Hydroxychloroquine Discussed with patient the risks and benefits of hydroxychloroquine in managing the rheumatic condition Benefits include: - Reduced pain, reduce mortality, maintenance of remission and reduction of flares Risks include: - GI upset, skin hyperpigmentation, retinal toxicity (especially after more than 5 years of use), myopathy Advised yearly ophthalmology visits Plan I spent 30 minutes reviewing the record and labs, taking a history, examining the patient, discussing the treatment plan, ordering diagnostic work up and documenting in the medical record Orders: Orders OT Evaluation and Treatment Today M19.041 - Primary osteoarthritis, right hand, M19.042 - Primary osteoarthritis, left hand AMB Joint Injection/Aspiration Today M17.12 - Unilateral primary osteoarthritis, left knee Medications: New hydroxychloroquine (Plaquenil) 200 mg PO DAILY 90 tabs 1RF M06.9 - Rheumatoid arthritis, unspecified Discontinued folic acid Discontinued Reason: Doctor's Order 1 mg PO DAILY 90 tabs 1RF M06.9 - Rheumatoid arthritis, unspecified methotrexate sodium Dose reduced. Please repeat labs in 4 weeks Discontinued Reason: Doctor's Order 10 mg (4 x 2.5 mg) PO QWEEK 48 tabs 0RF M06.9 - Rheumatoid arthritis, unspecified Coding Level of Care Code Est Pt Level 4 (12322) Complex EM visit Add On G2211 Diagnoses Rheumatoid arthritis involving multiple sites, unspecified whether rheumatoid factor present M06.9 Rheumatoid arthritis location: multiple sites Rheumatoid factor presence: unspecified presence Age-related osteoporosis without current pathological fracture M81.0 Osteoporosis type: age-related Presence of current pathological fracture: without current pathological fracture Polyarticular osteoarthritis M15.9 On prednisone therapy Z79.52 Encounter for ongoing osteoporosis therapy, bisphosphonates M81.0; Z79.83 Encounter for monitoring of hydroxychloroquine therapy Z51.81; Z79.899 CPT Codes Coding - 63015 Large joint: 93172 - Large joint ([id number])
[2025-02-04 15:45] VITALS: BP 134/62; PULSE 54; O2SAT 97; BMI 19.5
--- OUTSIDE RECORDS SUMMARY | 2025-02-04 16:13 | XMS_ITS ---
Author Organization [facility] on Care Team Providers Care Headline Writer Name Role Phone Milly Valverde Unavailable Unavailable Cristina Perera Unavailable Unavailable Nestor Garza Unavailable Unavailable Sabina Gutierrez Unavailable Unavailable Niraj Wells Unavailable Unavailable Jason, Stefany Unavailable Unava ilable Allergies and adverse reactions Code CodeSystem Substance Reaction Severity StartDate Concern Status 723 RXNORM Amoxicillin Unknown 12/26/2023 active Care Team Name Role Address Phone Organization Dates Niraj Wells PCP [address] [place] [address], [id number], [facility] (Office): : [facility] 12/26/2023 - 01/20/2024 Milly Valverde [address] [place] [address], [address], [place] (Office): : : [facility] 12/26/2023 - 01/20/2024 Cristina Perera [address] [place] [address], [address], [place] (Office): [facility] 12/26/2023 - 01/20/2024 Nestor Garza [address] [facility], [place], [address], [place] (Office): [facility] 12/26/2023 - 01/20/2024 Sabina Gerberbowski [address] [place] [address], [address], [place] (Office): [facility] 12/26/2023 - 01/20/2024 Stefany Gomez [address] [place], [address], [place] (Office): [facility] 12/26/2023 - 01/20/2024 Immunizations Immunization Status Vaccine Details Vaccine Code CodeSystem Date Notes TB 1 Step Mantoux (PPD) completed tuberculin skin test; unspecified formulation Given Right Forearm intradermally 98 CVX created date: 01/15/2024 consent date: 01/15/2024 administer ed date: 01/15/2024 Pneumococcal Polysaccharide Vaccine (PPSV23) cancelled pneumococcal polysaccharide vaccine, 23 valent 33 CVX created date: 12/27/2023 consent date: 12/27/2023 SARS-COV-2 (COVID-19) completed SARS-COV-2 (COVID-19) vaccine, mRNA, spike protein, LNP, preservative free, 30 mcg/0.3mL dose Mfg: NormOxys Step 2 of Multi-step with next step required 208 CVX created date: 12/26/2023 administer ed date: 08/20/2020 Verified in [facility]IS. SARS-COV-2 (COVID-19) completed SARS-COV-2 (COVID-19) vaccine, mRNA, spike protein, LNP, preservative free, 30 mcg/0.3mL dose Mfg: NormOxys Step 1 of Multi-step with next step required 208 CVX created date: 12/26/2023 administer ed date: 07/29/2020 Verified in [facility]. Prevnar 20 Pneumococcal conjugate (PCV20) cancelled Pneumococcal conjugate vaccine 20-valent (PCV20), polysaccharide [id number] conjugate, adjuvant, preservative free 216 CVX created date: 12/27/2023 consent date: 12/27/2023 SARS-COV-2 (COVID-19 BOOSTER) completed SARS-COV-2 (COVID-19) vaccine, mRNA, spike protein, LNP, preservative free, 30 mcg/0.3mL dose Mfg: Pfizer Booster # 1 208 CVX created date: 12/26/2023 administer ed date: 04/22/2021 Verified in [facility]IS. RSV, recombinant, protein subunit RSVpreF, adjuvant rec completed Respiratory syncytial virus (RSV), vaccine, recombinant, protein subunit RSV prefusion F, adjuvant reconstituted, 0.5 mL, preservative free 303 CVX created date: 12/26/2023 administer ed date: 09/21/2023 Verified in MIIS. influenza, unspecified formulation completed influenza virus vaccine, unspecified formulation 88 CVX created date: 12/26/2023 administer ed date: 05/01/2023 Verified in [facility]IS. COVID-19 vaccine, vector-nr, rS-Ad26, PF, 0.5 mL completed SARS-COV-2 (COVID-19) vaccine, mRNA, spike protein, LNP, preservative free, jesus-sucrose, 30 mcg/0.3 mL dose Mfg: Pfizer Comirnaty # 2 309 CVX created date: 12/26/2023 administer ed date: 09/21/2023 Verified in MIIS. COVID-19 vaccine, vector-nr, rS-Ad26, PF, 0.5 mL completed SARS-COV-2 (COVID-19) vaccine, mRNA, spike protein, LNP, preservative free, jesus-sucrose, 30 mcg/0.3 mL dose Mfg: PFIZER COMIRNATY 309 CVX created date: 12/26/2023 administer ed date: 05/01/2023 Verified in MIIS. Td(adult) unspecified formulation completed Td(adult) unspecified formulation 139 CVX created date: 12/26/2023 administer ed date: 01/18/2023 Verified in MIIS. Mental Status Section Date Assessment Total Score Description 01/20/2024 BIMS 15 cognitively int act CAM 0 No delirium ind icated PHQ-9 00 01/01/2024 BIMS 15 cognitively int act CAM 0 No delirium ind icated PHQ-9 03 minimal depress ion Problems Problem # Description Date of onset Resolved Date Code CodeSystem Concern Status 1 AGE-RELATED OSTEOPOROSIS WITHOUT CURRENT PATHOLOGICAL FRACTURE 12/26/[address] active 2 ANEMIA, UNSPECIFIED 12/26/[address] active 3 ESSENTIAL (PRIMARY) HYPERTENSION 12/26/[address] active 4 GASTRO-ESOPHAGEAL REFLUX DISEASE WITHOUT ESOPHAGITIS 12/26/[address] active 5 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 12/26/[address] active 6 NONDISPLACED FRACTURE OF GREATER TUBEROSITY OF RIGHT HUMERUS, SUBSEQUENT ENCOUNTER FOR FRACTURE WITH ROUTINE HEALING 12/26/[address] active 7 RHEUMATOID ARTHRITIS, UNSPECIFIED 12/26/[address] active 8 UNSPECIFIED INTRACAPSULAR FRACTURE OF RIGHT FEMUR, SUBSEQUENT ENCOUNTER FOR CLOSED FRACTURE WITH ROUTINE HEALING 12/26/2023200918037924 SNOMED CT active Reason for Referral No Reasons for Referral Entered Social History Social History Observation Description Start Date End Date Code Code System Current Smoking Status Tobacco smoking consumption unknown 549299431 SNOMED CT Sex Assigned At Female 1935 73217-6 [facility] Gender Identity Vital Signs Code Code System Vitals Name Values and Units Timing Information 55222-5 [facility] Pain Level Value=0.0 01/20/2024 9279-1 [facility] Respiratory Rate Value=18.0 Units=/m in 01/19/2024 8462-4 [facility] Blood Pressure-Diastolic Value=63 Un its=mmHg 01/19/2024 8480-6 [facility] Blood Pressure-Systolic Kafis=238 Un its=mmHg 01/19/2024 8310-5 [facility] Body Temperature Value=97.6 Units= F 01/19/2024 8867-4 [facility] Heart rate Value=64.0 Units=/min 31505-5 [facility] O2 % BldC Oximetry Value=95.0 Units= % 01/19/2024 96524-7 [facility] Weight Qfumy=701.0 Units=Lbs 04/2024 8302-2 [facility] Height Value=61.0 Units=Inches 12/28/2023
--- OUTSIDE RECORDS SUMMARY | 2025-02-04 16:13 | XMS_ITS | Encounter Summary ---
Author Organization [facility] Address [address] [place] [id number] Phone Care Team Providers Care Staff Mechanical Engineer Name Role Phone Melisa Moore MD Primary Care Provider [phone] Encounter Details Date Type Department Care Team (Late st Contact Info) Description 07/16/2024 Procedure Pass [facility], Ct Scan - [facility] [address] [place] [address] Social History Tobacco Use Types Packs/Day Years Used Date Smoking Tobacco: Never Smokeless Tobacco: Never Alcohol Use Standard Drinks/Week Comments Not Currently 0 (1 standard drink = 0.6 oz pur e alcohol) Home Health Assessment: Transportation Answer Date Recorded Lack of Transportation (Medical) No 07/20/2024 Lack of Transportation (Non-Medical) No 07/20/2024 Patient Unable or Declines to Respond No 07/20/2024 Education Answer Date Recorded Are you interested in more education? Not on nga e 11/04/2022 Are you concerned about learning? Not on file 11/04/2022 No 11/04/2022 No 11/04/2022 Food Answer Date Recorded Within the past 6 months we worried whether our food would run out before we got money to buy more. Never True 12/20/2023 Within the past 6 months the food we bought just didn't last and we didn't have enough money to get more. Never True Residential Stability Answer Date Recor ded What is your housing situation today? I have masoud yeung 12/20/2023 How many times have you move d in the past 12 months? Zero (I did not move) 12/20/2023 Paying for Meds Answer Date Recorded Do you have trouble paying for medicines? No 12/20/2023 Paying Utility Bills Answer Date Record ed Do you have trouble paying your heating or elect ricity bill? No 12/20/2023 Transportation Answer Date Recorded Has the lack of transportati on kept you from medical appointments or from getting medications? No 12/20/2023 Digital Access Answer Date Recorded No 12/05/2022 No 12/05/2022 Reliable internet access at home? Not on file 12/05/2022 Device with a working camera? Not on file Intimate Partner Violence Answer Date R ecorded Are you denied basic needs s uch as food, clothing, or medical care? No 07/16/2024 In the past 12 months have y ou been in a relationship with a person who hurts, threatens, or tries to control you? No 07/16/2024 Are you denied basic needs s uch as food, clothing, or medical care? No 07/16/2024 In the past 12 months have y ou been in a relationship with a person who hurts, threatens, or tries to control you? 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 Wish to be (Past 1 Month) No 07/16/2024 8:25 PM Kellee Hernandez, PERLITA 2. Non-Specific Active Suicidal Thoughts (Past 1 Month) No 07/16/2024 8:25 PM EST Kellee Anna, PERLITA 6. Suicidal Behavior (Lifetime) No 07/16/2024 8:25 PM EST Kellee Anna, PERLITA documented as of this encounter Plan of Treatment Upcoming Encounters Date Type Department Care Team (Late st Contact Info) Description 07/21/2024 Procedure Pass [facility] [address] [place] [address] 07/16/2025 3:00 PM EST Appointment [facility] [address] [place] [address] Pablo Naqvi DO [address] [place] [address] [email or web address] documented as of this encounter Visit Diagnoses Not on filedocumented in this encounter Additional Health Concerns Infection Onset Date Last Indicated Resolved Time CoV-Risk Comment:Per note documentation 07/16/2024 07/16/2024 9:55 AM EST CoV-Risk Comment:Per note documentation 07/24/2024 07/24/2024 7:09 AM EST CoV-Risk Comment:Per note documentation 10/11/2024 10/11/2024 2:39 PM EDT CDiff-Risk 10/13/2024 10/13/2024 10/17/2024 2:38 AM EDT documented as of this encounter Care Teams Staff Mechanical Engineer Relationship Specialty Start Date End Date Melisa Moore MD [address] [place] [address] [place] [address] [email or web address] PCP - General Family Medicine 05/01/22 documented as of this encounter Additional Source Comments The information contained in this document represents components of the legal health record. It is not the complete legal health record.[facility]
--- OUTSIDE RECORDS SUMMARY | 2025-02-04 16:14 | XMS_ITS | Patient Health Record ---
Author Organization [facility]. Address [address] [place] [address] Care Team Providers Care Supervisor Particleboard Name Role Phone Sana Ibanez Primary Care Provider Reason For Referral No Information Plan Of Treatment No Information Insurance Providers Payer Name Payer Address Payer Phone Subscriber Number Group Number Insured Name Patient Relationship to Insured Coverage Start Date Coverage End Date [facility] [address] [address] [place] [address] [id number] MELBA MICHELE Self - patient is the insured
== END 2025-02-04 16:34 | disposition home or self-care (01) ==
LOC: HO.RHE 15:34
PROVIDERS: PCP Family Medicine; Visit Provider Student in an Organized Health Care Education/Training Program
DX: M06.09 Rheumatoid arthritis without rheumatoid factor, multiple sites (principal); M81.0 Age-related osteoporosis without current pathological fracture; M15.9 Polyosteoarthritis, unspecified; Z79.52 Long term (current) use of systemic steroids; Z79.83 Long term (current) use of bisphosphonates; Z51.81 Encounter for therapeutic drug level monitoring; Z79.899 Other long term (current) drug therapy; M17.12 Unilateral primary osteoarthritis, left knee
CPT/HCPCS: 20610; 99214

== ENCOUNTER → 2025-02-04 15:33 | Outpatient (BNVA) | payer MEDICARE, SELFPAY | PROVIDERS: PCP Family Medicine; Visit Provider Student in an Organized Health Care Education/Training Program | DX: M06.9 Rheumatoid arthritis, unspecified (principal); M81.0 Age-related osteoporosis without current pathological fracture; M15.9 Polyosteoarthritis, unspecified; M25.562 Pain in left knee; Z79.52 Long term (current) use of systemic steroids; Z79.899 Other long term (current) drug therapy; Z96.641 Presence of right artificial hip joint; Z79.83 Long term (current) use of bisphosphonates; Z51.81 Encounter for therapeutic drug level monitoring | CPT/HCPCS: 20610; 99212; J2003; J3300 ==